=== PATIENT | female | born 1955 | race Two or more races ===

== ENCOUNTER 2016-04-20 08:42 | Outpatient (CLI) | payer BC ==
[~2016-04-20 08:42] MED LIST: ERGO400C; GLUC100017
[2016-04-20 09:21] LABS: BASOPHILS % (AUTO) 0.5 % (0.0-2.0); DIFF TOTAL % 100 %; EOSINOPHILS # (AUTO) 0.1 /CMM (0.0-0.7); EOSINOPHILS % (AUTO) 2.2 % (0.0-6.0); HEMATOCRIT 42 % (33-45); HEMOGLOBIN 13.3 g/dL (11.5-14.8); LYMPHOCYTES # (AUTO) 1.4 /CMM (0.8-4.8); LYMPHOCYTES % (AUTO) 25.1 % (20.0-44.0); MEAN CORPUSCULAR HEMOGLOBIN 25 PG (26.0-33.0); MEAN CORPUSCULAR HGB CONC 32 g/dl (31.0-36.0); MEAN CORPUSCULAR VOLUME 79 fL (82-100); MONOCYTES # (AUTO) 0.3 /CMM (0.1-1.30); MONOCYTES % (AUTO) 5.3 % (2.0-12.0); NEUTROPHILS # (AUTO) 3.7 /CMM (1.8-8.9); NEUTROPHILS % (AUTO) 66.9 % (43.0-81.0); PLATELET COUNT (AUTO) 339 /CMM (150-450); RED BLOOD CELL COUNT(AUTO) 5.27 MIL/uL (4.0-5.2); WHITE BLOOD COUNT (AUTO) 5.5 K/uL (4.3-11.0)
[2016-04-20 09:39] LABS: ALBUMIN 3.7 g/dL (3.4-5.0); BILIRUBIN,TOTAL 0.5 mg/dL (0.2-1.0); CALCIUM, SERUM 9.1 mg/dL (8.5-10.1); CREATININE 0.6 mg/dL (0.6-1.3); POTASSIUM 4.5 mmol/L (3.5-5.1); TOTAL PROTEIN, SERUM 7.6 g/dL (6.4-8.2)
[2016-04-20 09:43] LABS: THYROID STIMULATING HORMONE 1.034 uIU/mL (0.358-3.74)
[2016-04-21 11:37] LABS: *THYROGLOBULIN 1.6 IU/mL (0.0-0.9); THYROID PEROXIDASE (TPO) AB 8 IU/mL (0-34)
== END 2016-04-20 23:59 | disposition home or self-care (01) ==
LOC: LAB 08:42
PROVIDERS: ATTEND Family Medicine
DX: E04.1 Nontoxic single thyroid nodule (principal)
CPT/HCPCS: 36415; 80053-TC; 80061-TC; 84439-TC; 84443-TC; 85025-TC; 86376

== ENCOUNTER 2016-04-22 14:07 | Outpatient (CLI) | payer BC | END 2016-04-22 23:59 | disposition home or self-care (01) | LOC: US 14:07 | PROVIDERS: ATTEND Family Medicine | DX: E04.1 Nontoxic single thyroid nodule (principal) | CPT/HCPCS: 76536-TC ==

== ENCOUNTER 2016-05-28 05:42 | Outpatient (CLI) | payer BC ==
[2016-05-28 06:32] LABS: APPEARANCE,URINE CLEAR (CLEAR); BILIRUBIN,URINE NEGATIVE (NEGATIVE); BLOOD, URINE NEGATIVE Ery/uL (NEGATIVE); COLOR,URINE YELLOW (YELLOW); KETONES,URINE NEGATIVE (NEGATIVE); LEUKOCYTE ESTERASE ,URINE NEGATIVE (NEGATIVE); NITRITE, URINE NEGATIVE (NEGATIVE); PROTEIN,URINE NEGATIVE (NEGATIVE); UGLUCOSE NEGATIVE (NEGATIVE); UROBILINOGEN,URINE 0.2 EU/dL (0.2)
== END 2016-05-28 23:59 | disposition home or self-care (01) ==
LOC: LAB 05:42
PROVIDERS: ATTEND Family Medicine
DX: N28.1 Cyst of kidney, acquired (principal)
CPT/HCPCS: 81000-TC

== ENCOUNTER 2016-06-26 08:56 | Outpatient (CLI) | payer BC ==
[2016-06-26 09:58] LABS: BASOPHILS % (AUTO) 0.5 % (0.0-2.0); EOSINOPHILS # (AUTO) 0.1 /CMM (0.0-0.7); EOSINOPHILS % (AUTO) 2.7 % (0.0-6.0); HEMATOCRIT 42 % (33-45); HEMOGLOBIN 13.6 g/dL (11.5-14.8); LYMPHOCYTES # (AUTO) 1.5 /CMM (0.8-4.8); MEAN CORPUSCULAR HEMOGLOBIN 25 PG (26.0-33.0); MEAN CORPUSCULAR HGB CONC 32 g/dl (31.0-36.0); MEAN CORPUSCULAR VOLUME 78 fL (82-100); MONOCYTES # (AUTO) 0.2 /CMM (0.1-1.30); MONOCYTES % (AUTO) 5.3 % (2.0-12.0); NEUTROPHILS # (AUTO) 2.8 /CMM (1.8-8.9); NEUTROPHILS % (AUTO) 59.5 % (43.0-81.0); PLATELET COUNT (AUTO) 330 /CMM (150-450); RED BLOOD CELL COUNT(AUTO) 5.41 MIL/uL (4.0-5.2); WHITE BLOOD COUNT (AUTO) 4.7 K/uL (4.3-11.0)
[2016-06-26 10:52] LABS: ALBUMIN 3.9 g/dL (3.4-5.0); BILIRUBIN,TOTAL 0.9 mg/dL (0.2-1.0); CALCIUM, SERUM 9.1 mg/dL (8.5-10.1); CREATININE 0.5 mg/dL (0.6-1.3); POTASSIUM 4.1 mmol/L (3.5-5.1); TOTAL PROTEIN, SERUM 7.6 g/dL (6.4-8.2)
[2016-06-26 11:14] LABS: T4 (THYROXINE) 10.3 ug/dL (4.7-13.3); THYROID STIMULATING HORMONE 0.627 uIU/mL (0.358-3.74)
[2016-06-27 08:09] LABS: THYROID PEROXIDASE (TPO) AB 7 IU/mL (0-34)
[2016-06-27 11:10] LABS: VIT D, 25-HYDROXY 39.2 ng/mL (30.0-100.0)
[2016-07-01 11:21] LABS: *THYROGLOBULIN <1.0 IU/mL (0.0-0.9)
== END 2016-06-26 23:59 | disposition home or self-care (01) ==
LOC: LAB 08:56
PROVIDERS: ATTEND Family Medicine
DX: E78.5 Hyperlipidemia, unspecified (principal); E55.9 Vitamin D deficiency, unspecified; R94.6 Abnormal results of thyroid function studies
CPT/HCPCS: 36415; 80053-TC; 80061-TC; 82306; 84436-TC; 84443-TC; 85025-TC; 86376

== ENCOUNTER 2016-07-28 15:40 | Outpatient (CLI) | payer BC ==
[2016-07-30 03:10] LABS: *NEISSERIA GONORRHOEAE NAA Negative (Negative); CHLAMYDIA TRACHOMATIS NAA Negative (Negative)
== END 2016-07-28 23:59 | disposition home or self-care (01) ==
LOC: LAB 15:40
PROVIDERS: ATTEND Family Medicine
DX: Z11.3 Encounter for screening for infections with a predominantly sexual mode of transmission (principal)
CPT/HCPCS: 36415; 86803; 87491; 87591; 88142

== ENCOUNTER 2016-07-29 14:20 | Outpatient (CLI) | payer BC | END 2016-07-29 23:59 | disposition home or self-care (01) | LOC: US 14:20 | PROVIDERS: ATTEND Family Medicine | DX: N28.1 Cyst of kidney, acquired (principal) | CPT/HCPCS: 76770-TC ==

== ENCOUNTER 2016-09-02 10:43 | Outpatient (CLI) | payer BC ==
[2016-09-02 11:45] LABS: CREATININE 0.5 mg/dL (0.6-1.3)
[2016-09-02 11:49] LABS: INR 0.96 (0.87-1.13); PROTHROMBIN TIME 10.3 SECS (9.5-12.7)
== END 2016-09-02 23:59 | disposition home or self-care (01) ==
LOC: US 10:43
DX: Z01.818 Encounter for other preprocedural examination (principal); E04.2 Nontoxic multinodular goiter; N63 Unspecified lump in breast
CPT/HCPCS: 36415; 82565-TC; 84520-TC; 85730-TC

== ENCOUNTER 2016-11-04 13:59 | Outpatient (CLI) | payer BC | END 2016-11-04 23:59 | disposition home or self-care (01) | LOC: US 13:59 | PROVIDERS: ATTEND Family Medicine | DX: N28.1 Cyst of kidney, acquired (principal) | CPT/HCPCS: 76770-TC ==

== ENCOUNTER 2016-12-09 07:47 | Outpatient (CLI) | payer BC ==
[2016-12-09 08:33] LABS: APPEARANCE,URINE CLOUDY (CLEAR); BILIRUBIN,URINE NEGATIVE (NEGATIVE); BLOOD, URINE NEGATIVE Ery/uL (NEGATIVE); COLOR,URINE YELLOW (YELLOW); KETONES,URINE NEGATIVE (NEGATIVE); LEUKOCYTE ESTERASE ,URINE 1+ (NEGATIVE); NITRITE, URINE NEGATIVE (NEGATIVE); PH,URINE 7.5 (5.0-8.0); PROTEIN,URINE NEGATIVE (NEGATIVE); UGLUCOSE NEGATIVE (NEGATIVE); UROBILINOGEN,URINE 0.2 EU/dL (0.2)
[2016-12-09 08:38] LABS: BACTERIA,URINE Few /HPF (None Seen); RBC,URINE 0-2 /HPF (0-2); SQUAMOUS EPITHELIAL CELL,UR 0-2 /HPF (None Seen); URINE AMORPHOUS URATE Moderate /HPF (None Seen)
[2016-12-09 09:04] LABS: ALBUMIN 4.2 g/dL (3.4-5.0); BILIRUBIN,TOTAL 1.1 mg/dL (0.2-1.0); CALCIUM, SERUM 9.2 mg/dL (8.5-10.1); CREATININE 0.6 mg/dL (0.6-1.3); POTASSIUM 4.2 mmol/L (3.5-5.1); TOTAL PROTEIN, SERUM 7.9 g/dL (6.4-8.2)
[2016-12-09 09:12] LABS: T4 (THYROXINE) 11.6 ug/dL (4.7-13.3); THYROID STIMULATING HORMONE 0.949 uIU/mL (0.358-3.74)
[2016-12-09 09:16] LABS: BASOPHILS % (AUTO) 0.7 % (0.0-2.0); EOSINOPHILS # (AUTO) 0.2 /CMM (0.0-0.7); EOSINOPHILS % (AUTO) 2.8 % (0.0-6.0); HEMATOCRIT 46 % (33-45); HEMOGLOBIN 14.6 g/dL (11.5-14.8); LYMPHOCYTES # (AUTO) 1.8 /CMM (0.8-4.8); LYMPHOCYTES % (AUTO) 30.5 % (20.0-44.0); MEAN CORPUSCULAR HEMOGLOBIN 26 PG (26.0-33.0); MEAN CORPUSCULAR HGB CONC 32 g/dl (31.0-36.0); MEAN CORPUSCULAR VOLUME 82 fL (82-100); MONOCYTES # (AUTO) 0.3 /CMM (0.1-1.30); MONOCYTES % (AUTO) 4.9 % (2.0-12.0); NEUTROPHILS # (AUTO) 3.5 /CMM (1.8-8.9); NEUTROPHILS % (AUTO) 61.1 % (43.0-81.0); PLATELET COUNT (AUTO) 287 /CMM (150-450); RDW COEFFICIENT OF VARIATION 14.1 (11.5-15.0); RED BLOOD CELL COUNT(AUTO) 5.65 MIL/uL (4.0-5.2); WHITE BLOOD COUNT (AUTO) 5.8 K/uL (4.3-11.0)
== END 2016-12-09 23:59 | disposition home or self-care (01) ==
LOC: LAB 07:47
PROVIDERS: ATTEND Family Medicine
DX: Z00.01 Encounter for general adult medical examination with abnormal findings (principal); E55.9 Vitamin D deficiency, unspecified; E78.5 Hyperlipidemia, unspecified; R79.89 Other specified abnormal findings of blood chemistry
CPT/HCPCS: 36415; 80053-TC; 80061-TC; 81000-TC; 82306; 84436-TC; 84443-TC; 85025-TC; 87086-TC

== ENCOUNTER 2017-02-18 05:38 | Outpatient (CLI) | payer BC | END 2017-02-18 23:59 | disposition home or self-care (01) | LOC: LAB 05:38 | PROVIDERS: ATTEND Family Medicine | DX: Z11.59 Encounter for screening for other viral diseases (principal); N39.0 Urinary tract infection, site not specified; M19.072 Primary osteoarthritis, left ankle and foot; M19.071 Primary osteoarthritis, right ankle and foot; M25.471 Effusion, right ankle; M76.62 Achilles tendinitis, left leg; M20.5X1 Other deformities of toe(s) (acquired), right foot; M77.31 Calcaneal spur, right foot; M65.88 Other synovitis and tenosynovitis, other site; M85.88 Other specified disorders of bone density and structure, other site | CPT/HCPCS: 36415; 73600-TC; 73620-TC; 86706; 86709-TC; 86803; 87086-TC ==

== ENCOUNTER 2017-05-30 14:20 | Emergency (ER) | payer BC, OTHER ==
[~2017-05-30] VITALS: Ht 160 cm; Wt 76.2 kg
[2017-05-30 14:23] VITALS: BP 139/71
== END 2017-05-30 15:24 | disposition home or self-care (01) ==
LOC: ER 14:24
DX: I87.2 Venous insufficiency (chronic) (peripheral) (principal); J45.909 Unspecified asthma, uncomplicated; Z88.0 Allergy status to penicillin
CPT/HCPCS: 93971-TC; A4606; Z7610

== ENCOUNTER 2017-05-31 16:15 | Outpatient (CLI) | payer BC ==
[2017-05-31 17:50] LABS: BASOPHILS # (AUTO) 0.1 /CMM (0.0-0.2); BASOPHILS % (AUTO) 0.6 % (0.0-2.0); EOSINOPHILS # (AUTO) 0.2 /CMM (0.0-0.7); EOSINOPHILS % (AUTO) 2.3 % (0.0-6.0); HEMATOCRIT 44 % (33-45); HEMOGLOBIN 14.4 g/dL (11.5-14.8); LYMPHOCYTES # (AUTO) 2.6 /CMM (0.8-4.8); LYMPHOCYTES % (AUTO) 28.7 % (20.0-44.0); MEAN CORPUSCULAR HEMOGLOBIN 26 PG (26.0-33.0); MEAN CORPUSCULAR HGB CONC 33 g/dl (31.0-36.0); MEAN CORPUSCULAR VOLUME 80 fL (82-100); MONOCYTES # (AUTO) 0.6 /CMM (0.1-1.30); MONOCYTES % (AUTO) 6.6 % (2.0-12.0); NEUTROPHILS # (AUTO) 5.6 /CMM (1.8-8.9); NEUTROPHILS % (AUTO) 61.8 % (43.0-81.0); PLATELET COUNT (AUTO) 312 /CMM (150-450); RDW COEFFICIENT OF VARIATION 13.4 (11.5-15.0); RED BLOOD CELL COUNT(AUTO) 5.51 MIL/uL (4.0-5.2); WHITE BLOOD COUNT (AUTO) 9.1 K/uL (4.3-11.0)
[2017-05-31 17:53] LABS: APPEARANCE,URINE CLEAR (CLEAR); BILIRUBIN,URINE NEGATIVE (NEGATIVE); BLOOD, URINE NEGATIVE Ery/uL (NEGATIVE); COLOR,URINE YELLOW (YELLOW); KETONES,URINE NEGATIVE (NEGATIVE); LEUKOCYTE ESTERASE ,URINE 2+ (NEGATIVE); NITRITE, URINE NEGATIVE (NEGATIVE); PROTEIN,URINE NEGATIVE (NEGATIVE); UGLUCOSE NEGATIVE (NEGATIVE); UROBILINOGEN,URINE 0.2 EU/dL (0.2)
[2017-05-31 18:09] LABS: ALBUMIN 4.3 g/dL (3.4-5.0); BILIRUBIN,TOTAL 1.1 mg/dL (0.2-1.0); CALCIUM, SERUM 9.7 mg/dL (8.5-10.1); CREATININE 0.5 mg/dL (0.6-1.3); POTASSIUM 4.3 mmol/L (3.5-5.1); TOTAL PROTEIN, SERUM 8.7 g/dL (6.4-8.2)
[2017-05-31 18:17] LABS: BACTERIA,URINE Moderate /HPF (None Seen); RBC,URINE 0-2 /HPF (0-2); SQUAMOUS EPITHELIAL CELL,UR Moderate /HPF (None Seen); THYROID STIMULATING HORMONE 1.396 uIU/mL (0.358-3.74); URIC ACID 4.5 mg/dL (2.6-7.2); WBC,URINE 21-50 /HPF (0-3)
== END 2017-05-31 23:59 | disposition home or self-care (01) ==
LOC: LAB 16:15
PROVIDERS: ATTEND Family Medicine
DX: M85.872 Other specified disorders of bone density and structure, left ankle and foot (principal)
CPT/HCPCS: 36415; 73610-TC; 80053-TC; 80061-TC; 81000-TC; 82306; 84439-TC; 84443-TC; 84550-TC; 85025-TC; 87086-TC; 87186-TC

== ENCOUNTER 2017-06-03 11:49 | Outpatient (CLI) | payer BC | END 2017-06-03 23:59 | disposition home or self-care (01) | LOC: MRI 11:49 | PROVIDERS: ATTEND Family Medicine | DX: M19.072 Primary osteoarthritis, left ankle and foot (principal); M76.62 Achilles tendinitis, left leg | CPT/HCPCS: 73721-TC ==

== ENCOUNTER 2017-06-16 08:10 | Outpatient (CLI) | payer BC | END 2017-06-16 23:59 | disposition home or self-care (01) | LOC: LAB 08:10 | PROVIDERS: ATTEND Family Medicine | DX: E55.9 Vitamin D deficiency, unspecified (principal) | CPT/HCPCS: 36415; 82306 ==

== ENCOUNTER 2017-08-05 08:23 | Outpatient (CLI) | payer BC ==
[2017-08-05 09:41] LABS: EOSINOPHILS % (AUTO) 3.4 % (0.0-6.0); HEMATOCRIT 41 % (33-45); HEMOGLOBIN 13.2 g/dL (11.5-14.8); LYMPHOCYTES # (AUTO) 1.6 /CMM (0.8-4.8); LYMPHOCYTES % (AUTO) 32.4 % (20.0-44.0); MEAN CORPUSCULAR HGB CONC 33 g/dl (31.0-36.0); MEAN CORPUSCULAR VOLUME 80 fL (82-100); MONOCYTES # (AUTO) 0.3 /CMM (0.1-1.30); MONOCYTES % (AUTO) 6.2 % (2.0-12.0); NEUTROPHILS # (AUTO) 2.8 /CMM (1.8-8.9); PLATELET COUNT (AUTO) 297 /CMM (150-450); RDW COEFFICIENT OF VARIATION 14.3 (11.5-15.0); RED BLOOD CELL COUNT(AUTO) 5.09 MIL/uL (4.0-5.2); WHITE BLOOD COUNT (AUTO) 4.9 K/uL (4.3-11.0)
[2017-08-05 09:44] LABS: APPEARANCE,URINE SL CLOUDY (CLEAR); BILIRUBIN,URINE NEGATIVE (NEGATIVE); BLOOD, URINE NEGATIVE Ery/uL (NEGATIVE); COLOR,URINE YELLOW (YELLOW); KETONES,URINE NEGATIVE (NEGATIVE); LEUKOCYTE ESTERASE ,URINE 1+ (NEGATIVE); NITRITE, URINE NEGATIVE (NEGATIVE); PH,URINE 6.5 (5.0-8.0); PROTEIN,URINE NEGATIVE (NEGATIVE); UGLUCOSE NEGATIVE (NEGATIVE); UROBILINOGEN,URINE 0.2 EU/dL (0.2)
[2017-08-05 09:58] LABS: BACTERIA,URINE Few /HPF (None Seen); RBC,URINE NONE SEEN /HPF (0-2); SQUAMOUS EPITHELIAL CELL,UR Few /HPF (None Seen)
[2017-08-05 10:02] LABS: ALBUMIN 3.8 g/dL (3.4-5.0); BILIRUBIN,TOTAL 0.9 mg/dL (0.2-1.0); CALCIUM, SERUM 9.1 mg/dL (8.5-10.1); CREATININE 0.5 mg/dL (0.6-1.3); POTASSIUM 4.5 mmol/L (3.5-5.1); TOTAL PROTEIN, SERUM 7.4 g/dL (6.4-8.2)
[2017-08-05 10:08] LABS: FREE T4 (FREE THYROXINE) 1.09 ng/dL (0.76-1.46); THYROID STIMULATING HORMONE 0.783 uIU/mL (0.358-3.74)
== END 2017-08-05 23:59 | disposition home or self-care (01) ==
LOC: LAB 08:23
PROVIDERS: ATTEND Family Medicine
DX: Z00.01 Encounter for general adult medical examination with abnormal findings (principal)
CPT/HCPCS: 36415; 80053-TC; 80061-TC; 81000-TC; 82306; 84439-TC; 84443-TC; 85025-TC; 87086-TC; 87186-TC

== ENCOUNTER 2017-08-09 07:20 | Outpatient (CLI) | payer BC ==
[2017-08-09 09:17] LABS: BASOPHILS % (AUTO) 0.7 % (0.0-2.0); EOSINOPHILS % (AUTO) 2.6 % (0.0-6.0); HEMATOCRIT 41 % (33-45); HEMOGLOBIN 13.4 g/dL (11.5-14.8); LYMPHOCYTES % (AUTO) 31.3 % (20.0-44.0); MEAN CORPUSCULAR HGB CONC 33 g/dl (31.0-36.0); MEAN CORPUSCULAR VOLUME 80 fL (82-100); MONOCYTES # (AUTO) 0.3 /CMM (0.1-1.30); MONOCYTES % (AUTO) 5.3 % (2.0-12.0); NEUTROPHILS # (AUTO) 3.8 /CMM (1.8-8.9); NEUTROPHILS % (AUTO) 60.1 % (43.0-81.0); PLATELET COUNT (AUTO) 285 /CMM (150-450); RDW COEFFICIENT OF VARIATION 14.4 (11.5-15.0); RED BLOOD CELL COUNT(AUTO) 5.12 MIL/uL (4.0-5.2); WHITE BLOOD COUNT (AUTO) 6.3 K/uL (4.3-11.0)
[2017-08-09 09:42] LABS: ALBUMIN 3.9 g/dL (3.4-5.0); CALCIUM, SERUM 9.1 mg/dL (8.5-10.1); CREATININE 0.6 mg/dL (0.6-1.3); POTASSIUM 4.4 mmol/L (3.5-5.1); TOTAL PROTEIN, SERUM 7.4 g/dL (6.4-8.2)
[2017-08-09 10:13] LABS: INR 0.95 (0.87-1.13)
== END 2017-08-09 23:59 | disposition home or self-care (01) ==
LOC: LAB 07:20
PROVIDERS: ATTEND Family Medicine
DX: Z01.818 Encounter for other preprocedural examination (principal)
CPT/HCPCS: 36415; 80053-TC; 85025-TC; 85730-TC

== ENCOUNTER 2017-08-10 14:03 | Outpatient (CLI) | payer BC | END 2017-08-10 23:59 | disposition home or self-care (01) | LOC: RAD 14:03 | PROVIDERS: ATTEND Family Medicine | DX: Z01.818 Encounter for other preprocedural examination (principal); I70.0 Atherosclerosis of aorta; I51.7 Cardiomegaly | CPT/HCPCS: 71046 ==

== ENCOUNTER 2017-08-20 05:11 | Inpatient (IN) | payer BC ==
[2017-08-10 14:00] LABS: BILIRUBIN,URINE NEGATIVE (NEGATIVE); BLOOD, URINE NEGATIVE Ery/uL (NEGATIVE); COLOR,URINE YELLOW (YELLOW); KETONES,URINE NEGATIVE (NEGATIVE); LEUKOCYTE ESTERASE ,URINE TRACE (NEGATIVE); NITRITE, URINE NEGATIVE (NEGATIVE); PROTEIN,URINE NEGATIVE (NEGATIVE); UGLUCOSE NEGATIVE (NEGATIVE); UROBILINOGEN,URINE 0.2 EU/dL (0.2)
[2017-08-10 14:01] LABS: APPEARANCE,URINE TURBID (CLEAR)
[2017-08-10 14:29] LABS: BACTERIA,URINE Rare /HPF (None Seen); SQUAMOUS EPITHELIAL CELL,UR Rare /HPF (None Seen); URINE AMORPHOUS URATE Many /HPF (None Seen); WBC,URINE 0-2 /HPF (0-3)
[2017-08-10 14:30] LABS: RBC,URINE NONE SEEN /HPF (0-2)
[~2017-08-20] VITALS: Ht 160 cm; Wt 76.2 kg
--- NOTE | 2017-08-20 05:25 | NUR ---
PLZ SEE PRE OP ADMISSION NOTES FOR MORE INFORMATION
[2017-08-20] MEDS ORDERED: ANESTHESIA TRAY IN PYXIS 1 EA TRAY MC ONE (06:25)
[2017-08-20] MEDS ORDERED: BACITRACIN 50000 UNITS/VIAL ONE (06:25)
[2017-08-20] MEDS ORDERED: BUPIVACAINE 0.25% 75 MG/30 ML VIAL ONE (06:25)
[2017-08-20] MEDS ORDERED: LIDOCAINE HCL/PF 1% 30 ML SDV ONE (06:26)
[2017-08-20] MEDS ORDERED: FENTANYL PF 100MCG/2ML AMPUL ONE (06:38)
[2017-08-20] MEDS ORDERED: MIDAZOLAM HCL 2 MG/2ML VIAL ONE (06:38)
[2017-08-20] MEDS ORDERED: CLINDAMYCIN 900 MG/6 ML VIAL ONE (07:00)
--- NOTE | 2017-08-20 08:30 | NUR ---
RN OPENING ADMISSION NOTES PATIENT AWAKE, RESTING COMFORTABLY IN BED, RESPIRATIONS EVEN AND UNLABORED, ABLE TO MAKE NEEDS KNOWN, DENIES ANY PAIN OR DISCOMFORT AT THIS TIME. IV ACCESS TO R WRIST PATENT AND INTACT NO REDNESS OR INFILTRATION NOTED. SAFETY MEASURES IN PLACE, KEPT CLEAN DRY AND COMFORTABLE CALL LIGHT WITHIN EASY REACH ORIENTED TO ROOM AND UNIT, AND USE OF CALL LIGHT, CORNELL KIM BODY FITTER AWARE OF PT'S ARRIVAL, WILL CARRY OUT ADMITTING ORDERS
[2017-08-20] MEDS ORDERED: HYDROCODONE/APAP 5/325MG 1 EACH TABLET PO PRN (09:00)
[2017-08-20] MEDS ORDERED: BIOT10004 PO (09:02)
[2017-08-20] MEDS ORDERED: MAGN250T2 PO (09:02)
[2017-08-20] MEDS ORDERED: ASCO500T9 PO (09:02)
[2017-08-20] MEDS ORDERED: CHOL100044 PO (09:02)
[2017-08-20] MEDS: HYDROCODONE/APAP 5/325MG 1 EACH TABLET PO PRN ×2 (12:28→22:18)
[2017-08-20 16:00] VITALS: BP 120/74
--- NOTE | 2017-08-20 19:23 | NUR ---
RN CLOSING NOTES PATIENT AWAKE, RESTING COMFORTABLY IN BED, RESPIRATIONS EVEN AND UNLABORED, ABLE TO MAKE NEEDS KNOWN, DENIES ANY PAIN OR DISCOMFORT AT THIS TIME. IV ACCESS TO R WRIST PATENT AND INTACT NO REDNESS OR INFILTRATION NOTED. SAFETY MEASURES IN PLACE, KEPT CLEAN DRY AND COMFORTABLE CALL LIGHT WITHIN EASY REACH ORIENTED TO ROOM AND UNIT, AND USE OF CALL LIGHT. WILL CONTINUE TO MONITOR AND ENDORSE TO NEXT SHIFT FOR CONTINUITY OF CARE
--- NOTE | 2017-08-20 19:25 | NUR ---
MS RN NOTES RECEIVED PT SITTING UP IN BED, AWAKE, A/OX4, VERBALLY RESPONSIVE. FAMILY MEMBER AT BEDSIDE . NO SOB NOR DISTRESS NOTED, IV SITE ON RIGHT WRIST INTACT AND PATENT, NO S/S OF INFILTRATION NOTED. OFFERED PAIN MEDICINE BUT PT DENIES PAIN AT THIS TIME. LEFT FOOT WITH CLEAN AND INTACT DRESSING, NO BLEEDING NOTED AT THIS TIME, ELEVATED WITH PILLOW, ICE PACK APPLIED. ALL NEEDS ATTENDED AND MET. SAFETY PRECAUTIONS OBSERVED. CALL LIGHT WITHIN REACH. WILL MONITOR PT CLOSELY.
[2017-08-20 20:00] VITALS: BP 109/72
[2017-08-21] MEDS: HYDROCODONE/APAP 5/325MG 1 EACH TABLET PO PRN ×3 (05:07→15:00)
--- NOTE | 2017-08-21 06:31 | NUR ---
MS RN NOTES PT SITTING UP IN BED, AWAKE, WATCHING TV AT THIS TIME. A/OX4, VERBALLY RESPONSIVE. NO SOB NOR DISTRESS NOTED, IV SITE ON RIGHT WRIST INTACT AND PATENT, NO S/S OF INFILTRATION NOTED. LEFT FOOT WITH CLEAN AND INTACT DRESSING, NO BLEEDING NOTED AT THIS TIME, ELEVATED WITH PILLOW, ICE PACK APPLIED. ALL NEEDS ATTENDED AND MET. SAFETY PRECAUTIONS OBSERVED. CALL LIGHT WITHIN REACH. WILL ENDORSE TO DAY SHIFT ACCORDINGLY.
[2017-08-21 06:48] LABS: BASOPHILS % (AUTO) 0.5 % (0.0-2.0); HEMATOCRIT 41 % (33-45); HEMOGLOBIN 13.3 g/dL (11.5-14.8); LYMPHOCYTES # (AUTO) 2.1 /CMM (0.8-4.8); LYMPHOCYTES % (AUTO) 28.2 % (20.0-44.0); MEAN CORPUSCULAR HGB CONC 32 g/dl (31.0-36.0); MEAN CORPUSCULAR VOLUME 83 fL (82-100); MONOCYTES # (AUTO) 0.5 /CMM (0.1-1.30); MONOCYTES % (AUTO) 6.7 % (2.0-12.0); NEUTROPHILS # (AUTO) 4.8 /CMM (1.8-8.9); NEUTROPHILS % (AUTO) 63.6 % (43.0-81.0); PLATELET COUNT (AUTO) 277 /CMM (150-450); RDW COEFFICIENT OF VARIATION 14.4 (11.5-15.0); RED BLOOD CELL COUNT(AUTO) 4.93 MIL/uL (4.0-5.2); WHITE BLOOD COUNT (AUTO) 7.5 K/uL (4.3-11.0)
[2017-08-21 07:05] LABS: CALCIUM, SERUM 8.8 mg/dL (8.5-10.1); CREATININE 0.6 mg/dL (0.6-1.3); POTASSIUM 4.3 mmol/L (3.5-5.1)
--- NOTE | 2017-08-21 07:25 | NUR ---
MS/RN OPENING NOTE PATIENT IN BED AWAKE. ALERT AND ORIENTED X4. DENIES SOB. RESPIRATION REGULAR AND UNLABORED. DENIES PAIN. LEFT FOOT DRESSING INTACT AND CLEAN. RIGHT WRIST G 20 PATENT AND SALINE LOCKED. BED LOW AND LOCKED. SIDE RAILS UP X3. CALL LIGHT WITHIN REACH. WILL CONTINUE TO MONITOR.
[2017-08-21 08:00] VITALS: BP 115/80
[2017-08-21] MEDS ORDERED: HYDR-3972 PO (10:20)
[2017-08-21 16:00] VITALS: BP 151/80
--- NOTE | 2017-08-21 18:00 | NUR ---
MS/RN CLOSING NOTE PATIENT ALERT AND ORIENTED X4. DENIES SOB. DENIES PAIN. RESPIRATION REGULAR AND UNLABORED. BILATERAL PEDAL PULSES PRESENT. LEFT FOOT DRESSING IN PLACE WITH NO BLEEDING. DISCHARGE INSTRUCTIONS GIVEN TO THE PATIENT AND THE PATIENT VERBALIZED UNDERSTANDING. PRESCRIPTION GIVEN TO THE PATIENT AND THE COPY SAVED IN THE CHART. THE PATIENT IS PICKED UP BY THE SON. PATIENT LEFT THE HOSPITAL IN STABLE CONDITION.
== END 2017-08-21 18:15 | disposition home or self-care (01) | DRG 505 ==
LOC: DS 05:11 → MED 09:38
PROVIDERS: ADMIT Specialist; ATTEND Specialist
PROC: 0QBM0ZZ Excision of Left Tarsal, Open Approach (ICD-10-PCS; principal; 2017-08-20 07:00)
DX: M92.62 Juvenile osteochondrosis of tarsus, left ankle (principal); M19.90 Unspecified osteoarthritis, unspecified site; M89.9 Disorder of bone, unspecified; Z90.710 Acquired absence of both cervix and uterus
CPT/HCPCS: 36415; 80048-TC; 81000-TC; 85025-TC; 87081-TC; 97116-TC; 97530-TC; A6402; J1100; J2250; J2405; J2704; J3010; J3490

== ENCOUNTER 2017-11-02 10:33 | Outpatient (CLI) | payer BC ==
[~2017-11-02 10:33] MED LIST changes: +ASCO500T9 PO; +BIOT10004 PO; +CHOL100044 PO; -ERGO400C; -GLUC100017; +HYDR-3972 PO; +MAGN250T2 PO
[2017-11-02 15:52] LABS: MONOTEST NEGATIVE (NEGATIVE)
== END 2017-11-02 23:59 | disposition home or self-care (01) ==
LOC: RAD 10:33
PROVIDERS: ATTEND Family Medicine
DX: J02.9 Acute pharyngitis, unspecified (principal); R22.42 Localized swelling, mass and lump, left lower limb; J45.909 Unspecified asthma, uncomplicated; Z88.0 Allergy status to penicillin
CPT/HCPCS: 36415; 86308-TC; 93971-TC

== ENCOUNTER 2018-02-17 14:14 | Emergency (ER) | payer BC, OTHER ==
[~2018-02-17] VITALS: Ht 157.5 cm; Wt 76.2 kg
[2018-02-17 14:14] VITALS: BP 141/98
[2018-02-17] MEDS ORDERED: diphenhydrAMINE HCL 50 MG CAPSULE ONE (14:51)
[2018-02-17] MEDS ORDERED: predniSONE 20 MG TABLET ONE (14:51)
[2018-02-17] MEDS ORDERED: FAMOTIDINE (20 MG) 20 MG TABLET ONE (14:51)
[2018-02-17] MEDS ORDERED: FAMOTIDINE (20 MG) 20 MG TABLET PO ONE (15:00)
[2018-02-17] MEDS ORDERED: predniSONE 10 MG TABLET PO ONE (15:00)
[2018-02-17] MEDS ORDERED: diphenhydrAMINE HCL 50 MG CAPSULE PO ONE (15:00)
== END 2018-02-17 16:37 | disposition home or self-care (01) ==
LOC: ER 14:15
DX: T78.40XA Allergy, unspecified, initial encounter (principal); R22.0 Localized swelling, mass and lump, head; Z88.0 Allergy status to penicillin; Z79.899 Other long term (current) drug therapy; X58.XXXA Exposure to other specified factors, initial encounter
CPT/HCPCS: A4606; Q0163; Z7610

== ENCOUNTER 2018-02-25 14:56 | Emergency (ER) | payer BC, OTHER ==
[~2018-02-25] VITALS: Ht 160 cm; Wt 76.2 kg
[2018-02-25 15:10] VITALS: BP 191/89
--- NOTE | 2018-02-25 15:12 | NUR ---
pt bib self c/o Facial Itching/allergy was seen 02/17 for same given meds but still there, pt is aaox4, not in respiratory distress, kept rested and comfortable, awaiting er md for eval.
--- NOTE | 2018-02-25 15:42 | NUR ---
Patient discharged to home in stable condition. Written and verbal after care instructions given. Patient verbalizes understanding of instruction.
== END 2018-02-25 15:55 | disposition home or self-care (01) ==
LOC: ER 14:59
DX: L25.9 Unspecified contact dermatitis, unspecified cause (principal); Z88.0 Allergy status to penicillin
CPT/HCPCS: A4606; Z7610

== ENCOUNTER 2018-03-03 06:03 | Outpatient (CLI) | payer BC | END 2018-03-03 23:59 | disposition home or self-care (01) | LOC: LAB 06:03 | PROVIDERS: ATTEND Family Medicine | DX: T78.40XA Allergy, unspecified, initial encounter (principal) | CPT/HCPCS: 36415 ==

== ENCOUNTER 2019-06-25 15:24 | Emergency (ER) | payer BC, OTHER ==
[~2019-06-25] VITALS: Ht 160 cm; Wt 77.1 kg
[~2019-06-25 15:24] MED LIST changes: +ASCO-352 PO; -ASCO500T9 PO
--- NOTE | 2019-06-25 15:26 | NUR ---
came in from hospital kitchecn c/o left hand pain and lac s/p hand got caught in the conveyor tray 6/10 pain scale, to ER bed 7, hooked to monitor, warm blanket provided. awaiting MD nelson
--- NOTE | 2019-06-25 15:30 | NUR ---
Dr Gutierrez at bedside
[2019-06-25] MEDS ORDERED: TDAP [DIPH/PERTUSSIS/TET] 0.5 ML VIAL IM ONE ×2 (15:42→16:00)
--- NOTE | 2019-06-25 16:44 | NUR ---
Patient discharged to home in stable condition. Written and verbal after care instructions given. Patient verbalizes understanding of instruction.
[2019-06-25 16:45] VITALS: BP 139/79
== END 2019-06-25 16:45 | disposition home or self-care (01) ==
LOC: ER 15:27
DX: S60.022A Contusion of left index finger without damage to nail, initial encounter (principal); Z79.899 Other long term (current) drug therapy; Z88.0 Allergy status to penicillin; W23.0XXA Caught, crushed, jammed, or pinched between moving objects, initial encounter; Y93.89 Activity, other specified; Y92.89 Other specified places as the place of occurrence of the external cause; Y99.8 Other external cause status
CPT/HCPCS: 73130-TC; 90715

== ENCOUNTER 2019-09-27 10:14 | Outpatient (CLI) | payer BC ==
[2019-09-27 11:50] LABS: ALBUMIN 3.8 g/dL (3.4-5.0); CREATININE 0.6 mg/dL (0.6-1.3)
[2019-09-27 11:58] LABS: BASOPHILS # (AUTO) 0.1 /CMM (0.0-0.2); BASOPHILS % (AUTO) 1.8 % (0.0-2.0); HEMATOCRIT 43 % (33-45); HEMOGLOBIN 13.6 g/dL (11.5-14.8); LYMPHOCYTES # (AUTO) 1.3 /CMM (0.8-4.8); LYMPHOCYTES % (AUTO) 25.7 % (20.0-44.0); MEAN CORPUSCULAR HGB CONC 32 g/dl (31.0-36.0); MEAN CORPUSCULAR VOLUME 82 fL (82-100); MONOCYTES # (AUTO) 0.3 /CMM (0.1-1.30); MONOCYTES % (AUTO) 5.5 % (2.0-12.0); NEUTROPHILS # (AUTO) 3.1 /CMM (1.8-8.9); PLATELET COUNT (AUTO) 248 /CMM (150-450); RED BLOOD CELL COUNT(AUTO) 5.15 MIL/uL (4.0-5.2); WHITE BLOOD COUNT (AUTO) 4.9 K/uL (4.3-11.0)
[2019-09-27 12:01] LABS: THYROID STIMULATING HORMONE 0.622 uIU/mL (0.358-3.74)
== END 2019-09-27 23:59 | disposition home or self-care (01) ==
LOC: LAB 10:14
PROVIDERS: ATTEND Family Medicine
DX: E78.5 Hyperlipidemia, unspecified (principal)
CPT/HCPCS: 36415; 80053-TC; 80061-TC; 84439-TC; 84443-TC; 85025-TC

== ENCOUNTER 2020-01-15 19:00 | Emergency (ER) | payer BC, OTHER ==
[~2020-01-15] VITALS: Ht 160 cm; Wt 77.1 kg
--- NOTE | 2020-01-15 19:16 | NUR ---
PT BIBSELF C/O HIGH BP READING AT HOME, ALSO C/O PALPITATIONS. PT STATES SYMPTOMS RESOLVED ONCE SHE ARRIVED TO THE ER. DENIES CP, SOB. PT AAOX4. AMBULATORY WITH STEADY GAIT. RESPIRATIONS EVEN AND UNLABORED. SKIN INTACT. NO ACUTE DISTRESS NOTED AT THIS TIME. WILL CONTINUE TO MONITOR
--- NOTE | 2020-01-15 19:33 | NUR ---
MECHANICAL MANAGER AT BEDSIDE FOR BLOOD DRAW
[2020-01-15 19:37] LABS: BASOPHILS % (AUTO) 0.7 % (0.0-2.0); EOSINOPHILS % (AUTO) 3.8 % (0.0-6.0); HEMATOCRIT 45 % (33-45); HEMOGLOBIN 14.4 g/dL (11.5-14.8); LYMPHOCYTES # (AUTO) 1.5 /CMM (0.8-4.8); LYMPHOCYTES % (AUTO) 25.7 % (20.0-44.0); MEAN CORPUSCULAR HGB CONC 32 g/dl (31.0-36.0); MEAN CORPUSCULAR VOLUME 83 fL (82-100); MONOCYTES # (AUTO) 0.4 /CMM (0.1-1.30); MONOCYTES % (AUTO) 7.6 % (2.0-12.0); NEUTROPHILS # (AUTO) 3.6 /CMM (1.8-8.9); NEUTROPHILS % (AUTO) 62.2 % (43.0-81.0); PLATELET COUNT (AUTO) 257 /CMM (150-450); RED BLOOD CELL COUNT(AUTO) 5.44 MIL/uL (4.0-5.2); WHITE BLOOD COUNT (AUTO) 5.7 K/uL (4.3-11.0)
[2020-01-15 19:45] LABS: CALCIUM, SERUM 9.3 mg/dL (8.5-10.1); CREATININE 0.7 mg/dL (0.6-1.3); POTASSIUM 4.2 mmol/L (3.5-5.1)
--- NOTE | 2020-01-15 21:04 | NUR ---
Patient discharged to home in stable condition. Written and verbal after care instructions given. Patient verbalizes understanding of instruction.Pt ambulatory with a steady gait
[2020-01-15 21:07] VITALS: BP 141/83
== END 2020-01-15 21:09 | disposition home or self-care (01) ==
LOC: ER 19:02
DX: R00.2 Palpitations (principal); I10 Essential (primary) hypertension; Z98.890 Other specified postprocedural states; Z88.0 Allergy status to penicillin; Z79.899 Other long term (current) drug therapy
CPT/HCPCS: 36415; 80048-TC; 85025-TC

== ENCOUNTER 2020-02-08 14:03 | Outpatient (CLI) | payer BC ==
[2020-02-08 16:34] LABS: CALCIUM, SERUM 9.4 mg/dL (8.5-10.1); CREATININE 0.5 mg/dL (0.6-1.3); POTASSIUM 4.7 mmol/L (3.5-5.1)
== END 2020-02-08 23:59 | disposition home or self-care (01) ==
LOC: LAB 14:03
PROVIDERS: ATTEND Internal Medicine
DX: R53.83 Other fatigue (principal)
CPT/HCPCS: 36415; 80048-TC

== ENCOUNTER 2020-04-04 08:05 | Outpatient (CLI) | payer BC ==
[2020-04-04 11:36] LABS: BASOPHILS # (AUTO) 0.1 /CMM (0.0-0.2); BASOPHILS % (AUTO) 0.9 % (0.0-2.0); HEMATOCRIT 47 % (33-45); HEMOGLOBIN 14.7 g/dL (11.5-14.8); LYMPHOCYTES # (AUTO) 1.7 /CMM (0.8-4.8); LYMPHOCYTES % (AUTO) 30.3 % (20.0-44.0); MEAN CORPUSCULAR HGB CONC 32 g/dl (31.0-36.0); MEAN CORPUSCULAR VOLUME 84 fL (82-100); MONOCYTES # (AUTO) 0.3 /CMM (0.1-1.30); MONOCYTES % (AUTO) 6.1 % (2.0-12.0); NEUTROPHILS # (AUTO) 3.4 /CMM (1.8-8.9); NEUTROPHILS % (AUTO) 60.7 % (43.0-81.0); PLATELET COUNT (AUTO) 254 /CMM (150-450); RED BLOOD CELL COUNT(AUTO) 5.58 MIL/uL (4.0-5.2); WHITE BLOOD COUNT (AUTO) 5.6 K/uL (4.3-11.0)
[2020-04-04 11:38] LABS: BILIRUBIN,URINE NEGATIVE (NEGATIVE); COLOR,URINE YELLOW (YELLOW); LEUKOCYTE ESTERASE ,URINE NEGATIVE (NEGATIVE); NITRITE, URINE NEGATIVE (NEGATIVE); PROTEIN,URINE NEGATIVE (NEGATIVE); UGLUCOSE NEGATIVE (NEGATIVE); UROBILINOGEN,URINE 0.2 EU/dL (0.2)
[2020-04-04 11:51] LABS: BILIRUBIN,TOTAL 1.1 mg/dL (0.2-1.0); CALCIUM, SERUM 9.4 mg/dL (8.5-10.1); CREATININE 0.5 mg/dL (0.6-1.3); POTASSIUM 4.5 mmol/L (3.5-5.1); TOTAL PROTEIN, SERUM 7.6 g/dL (6.4-8.2)
[2020-04-04 12:03] LABS: THYROID STIMULATING HORMONE 0.658 uIU/mL (0.358-3.74)
== END 2020-04-04 23:59 | disposition home or self-care (01) ==
LOC: LAB 08:05
PROVIDERS: ATTEND Family Medicine
DX: I10 Essential (primary) hypertension (principal); E78.5 Hyperlipidemia, unspecified; E55.9 Vitamin D deficiency, unspecified; R00.2 Palpitations; Z79.899 Other long term (current) drug therapy
CPT/HCPCS: 36415; 80053-TC; 80061-TC; 82306; 84439-TC; 84443-TC; 85025-TC

== ENCOUNTER 2020-11-07 14:00 | Inpatient (IN) | payer BC ==
[~2020-11-07] VITALS: Ht 160 cm; Wt 78.0 kg
--- NOTE | 2020-11-07 14:05 | NUR ---
SOB SINCE THIS MORNING. PATIENT A/OX4, C/O FEELING SOB AND WEAK X 1 WEEK. WORSE TODAY. PATIENT AMBULATORY WITH STEADY GAIT. PLACED ON THE ELECTRICAL CONTINUITY TESTER WITH HR OF 118-120. EKG ORDERED.
[2020-11-07 14:37] LABS: BASOPHILS # (AUTO) 0.1 K/uL (0.0-0.2); BASOPHILS % (AUTO) 0.8 % (0.0-2.0); EOSINOPHILS % (AUTO) 1.7 % (0.0-6.0); HEMATOCRIT 45 % (33-45); HEMOGLOBIN 14.4 g/dL (11.5-14.8); LYMPHOCYTES # (AUTO) 2.1 K/uL (0.8-4.8); LYMPHOCYTES % (AUTO) 23.3 % (20.0-44.0); MEAN CORPUSCULAR HGB CONC 32 g/dl (31.0-36.0); MEAN CORPUSCULAR VOLUME 84 fL (82-100); MONOCYTES # (AUTO) 0.5 K/uL (0.1-1.30); MONOCYTES % (AUTO) 5.8 % (2.0-12.0); NEUTROPHILS # (AUTO) 6.2 K/uL (1.8-8.9); NEUTROPHILS % (AUTO) 68.4 % (43.0-81.0); PLATELET COUNT (AUTO) 263 K/uL (150-450); RED BLOOD CELL COUNT(AUTO) 5.39 MIL/uL (4.0-5.2); WHITE BLOOD COUNT (AUTO) 9.1 K/uL (4.3-11.0)
[2020-11-07 14:46] LABS: CREATININE 0.6 mg/dL (0.6-1.3); POTASSIUM 4.1 mmol/L (3.5-5.1)
[2020-11-07 14:52] LABS: ALBUMIN 3.8 g/dL (3.4-5.0); BILIRUBIN,DIRECT 0.4 mg/dL (0.0-0.2); BILIRUBIN,TOTAL 0.9 mg/dL (0.2-1.0); TOTAL PROTEIN, SERUM 7.3 g/dL (6.4-8.2)
[2020-11-07] MEDS ORDERED: FUROSEMIDE 40 MG/4 ML VIAL ONE (14:54)
[2020-11-07] MEDS ORDERED: DILTIAZEM HCL 25 MG IV ONE (14:55)
[2020-11-07] MEDS ORDERED: DILTIAZEM HCL 25 MG IV IV ONE (15:00)
[2020-11-07] MEDS ORDERED: FUROSEMIDE 40 MG/4 ML VIAL IV ONE (15:00)
--- NOTE | 2020-11-07 15:20 | NUR ---
COVID SWAB SENT TO LAB.
[2020-11-07 15:21] LABS: THYROID STIMULATING HORMONE 0.888 uIU/mL (0.358-3.74)
--- NOTE | 2020-11-07 15:25 | NUR ---
PATIENT WENT TO RESTROOM, FORGOT TO PROVIDE A URINE SAMPLE.
--- NOTE | 2020-11-07 15:47 | NUR ---
URINE SENT TO LAB.
[2020-11-07] MEDS ORDERED: METO-357 PO (15:53)
--- NOTE | 2020-11-07 16:18 | NUR ---
319-1 [facility] BED
[2020-11-07 16:24] LABS: BILIRUBIN,URINE Negative (NEGATIVE); COLOR,URINE YELLOW (YELLOW); LEUKOCYTE ESTERASE ,URINE Negative (NEGATIVE); NITRITE, URINE Negative (NEGATIVE); PH,URINE 6.5 (5.0-8.0); PROTEIN,URINE Negative (NEGATIVE); UGLUCOSE Negative (NEGATIVE); UROBILINOGEN,URINE 0.2 EU/dL (0.2)
[2020-11-07] MEDS ORDERED: ACETAMINOPHEN 325 MG TABLET PO PRN (16:30)
[2020-11-07] MEDS ORDERED: ONDANSETRON HCL/PF 4 MG/2 ML VIAL IVP PRN (16:30)
[2020-11-07] MEDS ORDERED: MAG HYDROX/AL HYDROX/SIMETH 30 ML UDC PO PRN (16:30)
[2020-11-07] MEDS ORDERED: Z GUARD REMEDY 2 OZ OINT TP PRN (16:30)
[2020-11-07] MEDS ORDERED: MAGNESIUM HYDROXIDE 30 ML UDC PO PRN (16:30)
--- NOTE | 2020-11-07 17:10 | NUR ---
RN NOTE RECEIVED REPORT FROM SANTINO DOBBINS
--- NOTE | 2020-11-07 17:10 | NUR ---
REPORT GIVEN TO ROCKY DE FOR GIANCARLO.
--- NOTE | 2020-11-07 17:30 | NUR ---
RN NOTE PATIENT WAS TRANSFERRED FROM ER 5 TO ROOM 319. VS BP 117/77 WA 95 RR 18 T 97.6 SA02 96%. PT IS AMBULATORY. A/O X4. ON ROOM AIR, TOLERATING WELL. NO SOB NOTED. NO CHEST PAIN REPORTED. IN NO APPARENT DISTRESS. TELE READING SHOWS AFIB 105. DENIES ANY PAIN OR DISCOMFORT AT THIS TIME. SAFETY MEASURES MAINTAINED. BED IN LOWEST POSITION, BRAKES LOCKED. SIDE RAILS UP X2. CALL LIGHT WITHIN REACH. WILL CONTINUE PLAN OF CARE.
--- NOTE | 2020-11-07 17:35 | NUR ---
PATIENT TRANSFERRED TO ROOM 319 VIA ACLS PROTOCOL. NO DISTRESS NOTED. NEEDS ATTENDED. KEPT COMFORTABLE. ENDORSED TO ROCKY DE.
--- NOTE | 2020-11-07 18:10 | NUR ---
SANTINO NOTE TRANSFERRED PT TO ICU 257 VIA BED. STABLE, NO COMPLAINTS. REPORT GIVEN TO SANTINO OSPINA FOR GIANCARLO Addendum: 11/07/20 at 1941 by ROCKY CLINTON RN CORRECTION: PT TRANSFERRED AROUND 1909
[2020-11-07] MEDS ORDERED: DILTIAZEM HCL IV 125 MG in IV NS 0.9% 100 ML IV PRN (18:30)
[2020-11-07] MEDS ORDERED: RIVAROXABAN 10 MG TABLET PO SCH (18:30)
--- NOTE | 2020-11-07 18:35 | NUR ---
RN NOTE DR. FERNANDES ORDERED PT TO BE NPO EXCEPT MEDS POST MIDNIGHT AND TO OBTAIN CONSENT FOR GUZMAN CARDIOVERSION. RECEIVED ORDERS AND CARRIED OUT.
[2020-11-07] MEDS: METOPROLOL SUCCINATE 50 MG TAB.SR.24H PO SCH (18:43)
[2020-11-07] MEDS: APIXABAN 5 MG TABLET PO SCH (18:43)
--- NOTE | 2020-11-07 19:30 | NUR ---
RN NOTE RECEIVED PATIENT IN BED. A/OX4. TOLERATING ROOM AIR. RESPIRATIONS ARE EVEN AND UNLABORED. NO S/S SOB NOTED. NO C/O PAIN AT THIS TIME. IN NO APPARENT DISTRESS. IV ACCESS IN RAC#18 PATENT AND SALINE LOCKED. CALLED PHARMACY TO DELIVER CARDIZEM DRIP. BED IS LOW AND LOCKED, HOB ELEVATED IN HIGH FOWLERS, SIDE RIALS UP X2, CALL LIGHT WITHIN REACH. WILL CONTINUE TO MONITOR THROUGHOUT SHIFT. Addendum: 11/07/20 at 2156 by BHAVESH HERNANDEZ RN TELE MONITOR READS UNCONTROLLED AFIB HR 109. RANGE TO 130S. Addendum: 11/08/20 at 0704 by BHAVESH HERNANDEZ RN CORRECTION PATIENT N 2L/MIN VIA NASAL CANNULA.
[2020-11-07 20:00] VITALS: BP 116/69
[2020-11-07 21:00] VITALS: BP 115/69
[2020-11-07 22:00] VITALS: BP 107/72
--- NOTE | 2020-11-07 22:30 | NUR ---
RN NOTE HELD TADEO CASTROIP D/T PATIENT BP DROPPED TO 88/52 AND HR DROPPED TO 48 THEN BACK UP TO 60S. HR REMAINS IN 60S-70S. CONTROLLED AFIB WITH OCCASIONAL PVCS.
[2020-11-07 23:00] VITALS: BP 93/65
--- NOTE | 2020-11-07 23:56 | NUR ---
RN NOTE INFORMED PATIENT SHE IS NOW NPO. PATIENT VERBALIZES UNDERSTANDING. ALL FOOD AND DRINKS REMOVED FROM BEDSIDE. NPO SIGN PLACED ON DOOR.
[2020-11-08] VITALS (32 sets, daily range): BP systolic 85–129; BP diastolic 35–86
[2020-11-08 04:21] LABS: BASOPHILS # (AUTO) 0.1 K/uL (0.0-0.2); BASOPHILS % (AUTO) 0.8 % (0.0-2.0); EOSINOPHILS % (AUTO) 2.8 % (0.0-6.0); HEMATOCRIT 42 % (33-45); HEMOGLOBIN 13.3 g/dL (11.5-14.8); LYMPHOCYTES # (AUTO) 1.3 K/uL (0.8-4.8); LYMPHOCYTES % (AUTO) 19.9 % (20.0-44.0); MEAN CORPUSCULAR HGB CONC 32 g/dl (31.0-36.0); MEAN CORPUSCULAR VOLUME 84 fL (82-100); MONOCYTES # (AUTO) 0.4 K/uL (0.1-1.30); MONOCYTES % (AUTO) 6.2 % (2.0-12.0); NEUTROPHILS # (AUTO) 4.6 K/uL (1.8-8.9); NEUTROPHILS % (AUTO) 70.3 % (43.0-81.0); PLATELET COUNT (AUTO) 245 K/uL (150-450); RED BLOOD CELL COUNT(AUTO) 4.93 MIL/uL (4.0-5.2); WHITE BLOOD COUNT (AUTO) 6.6 K/uL (4.3-11.0)
[2020-11-08 04:33] LABS: CALCIUM, SERUM 8.8 mg/dL (8.5-10.1); CREATININE 0.7 mg/dL (0.6-1.3); PHOSPHORUS 3.8 mg/dL (2.5-4.9); POTASSIUM 4.3 mmol/L (3.5-5.1)
--- NOTE | 2020-11-08 06:16 | NUR ---
RN NOTE PATIENT RESTING IN BED. A/OX4. ON OXYGEN 2L/MIN VIA NASAL CANNULA. NO RESP DISTRESS. NO PAIN. NO DISTRESS. IV ACCESS IN RAC#18. CARDIZEM HELD. TELE MONITOR READS CONTROLLED AFIB HR 70S. BED REMAINS LOW AND LOCKED, HOB ELEVATED IN HIGH FOWLERS, SIDE RIALS UP X2, CALL LIGHT WITHIN REACH. WILL ENDORSE TO ONCOMING SHIFT.
--- NOTE | 2020-11-08 07:20 | NUR ---
ICU/RN PT IS SITTING ON THE BED.ON ROOM AIR,SAT O2-100%.V/S STABLE ,AFEBRILE.A-FIB ON MONITOR HR-105-115 BPM.CARDIZEM DRIP OFF.RIGHT UPPER ARM IV-HL. PT USE BEDSIDE COMMODE.AMBULATING IN THE ROOM.WAITING FOR GUZMAN AND CARDIOVERSION.
[2020-11-08] MEDS ORDERED: MIDAZOLAM HCL 2 MG/2ML VIAL ONE (07:34)
--- NOTE | 2020-11-08 08:30 | NUR ---
ICU/RN GUZMAN AND CARDIOVERSION DONE .PT HR-65 BPM SINUS RHYTHM.PT TOLERATED PROCEDURE WELL .CONTINUE MONITORING.
[2020-11-08] MEDS: APIXABAN 5 MG TABLET PO SCH ×2 (08:59→17:13)
[2020-11-08] MEDS: METOPROLOL SUCCINATE 50 MG TAB.SR.24H PO SCH (09:00)
[2020-11-08] MEDS: FUROSEMIDE 20 MG TABLET PO SCH (10:42)
--- NOTE | 2020-11-08 17:50 | NUR ---
ICU/RN DUE MEDS ARE GIVEN ORDERED.PM CARE PROVIDED.V/S STABLE,AFEBRILE. NO PAIN REPORTED AT THIS TIME.CONTINUE MONITORING.
--- NOTE | 2020-11-08 19:30 | NUR ---
RN NOTE RECEIVED PATIENT IN BED. A/OX4. TOLERATING ROOM AIR. RESPIRATIONS ARE EVEN AND UNLABORED. NO S/S SOB NOTED. NO C/O PAIN. IN NO APPARENT DISTRESS. TELE MONITOR READS INUS RHYTHM/ SINUS DEONTE. IV ACCESS IN RAC#18 PATENT AND SALINE LOCKED. BED IS LOW AND LOCKED, HOB ELEVATED IN SEMI FOWLERS, SIDE RAILS UP X2, JENNIFER LIGHT WIHTIN REACH. WILL CONTINUE TO MONITOR THROUGHOUT SHIFT.
[2020-11-09] VITALS (47 sets, daily range): BP systolic 68–153; BP diastolic 32–100
[2020-11-09 04:39] LABS: BASOPHILS % (AUTO) 0.8 % (0.0-2.0); EOSINOPHILS % (AUTO) 3.7 % (0.0-6.0); HEMATOCRIT 39 % (33-45); HEMOGLOBIN 12.4 g/dL (11.5-14.8); LYMPHOCYTES # (AUTO) 1.4 K/uL (0.8-4.8); LYMPHOCYTES % (AUTO) 24.7 % (20.0-44.0); MEAN CORPUSCULAR HGB CONC 32 g/dl (31.0-36.0); MEAN CORPUSCULAR VOLUME 84 fL (82-100); MONOCYTES # (AUTO) 0.4 K/uL (0.1-1.30); MONOCYTES % (AUTO) 6.8 % (2.0-12.0); NEUTROPHILS # (AUTO) 3.7 K/uL (1.8-8.9); PLATELET COUNT (AUTO) 213 K/uL (150-450); RED BLOOD CELL COUNT(AUTO) 4.61 MIL/uL (4.0-5.2); WHITE BLOOD COUNT (AUTO) 5.7 K/uL (4.3-11.0)
[2020-11-09 04:58] LABS: CALCIUM, SERUM 8.3 mg/dL (8.5-10.1); CREATININE 0.6 mg/dL (0.6-1.3); PHOSPHORUS 3.5 mg/dL (2.5-4.9); POTASSIUM 4.1 mmol/L (3.5-5.1)
--- NOTE | 2020-11-09 07:18 | NUR ---
RN NOTE PATIENT RESTING IN BED. A/OX4. TOLERATING ROOM AIR. NO RESP DISTRESS. NO PAIN.NO DISTRESS. TELE MONITOR CONTINUES TO READ SINUS RHYTHM/ SINUS DEONTE. IV ACCESS MAINTAINED IN RAC. BED REMAINS LOW AND LOCKED, HOB ELEVATED IN SEMI FOWLERS, SIDE RAILS UP X2, CALL LIGHT WIHTIN REACH. WILL ENDORSE TO ONCOMING SHIFT.
--- NOTE | 2020-11-09 07:30 | NUR ---
ICU/RN PT IS AWAKE,ALERT.AMBULATING IN THE ROOM .ON ROOM AIR .SAT O2-97%.V/S STABLE ,AFEBRILE. HR SINUS RHYTHM 60-65 BPM NO PAIN REPORTED AT THIS TIME.IV-HL.SKIN INTACT.
--- NOTE | 2020-11-09 09:00 | NUR ---
ICU/RN DUE MEDS ARE GIVEN ORDERED.PT IS WAITING FOR DISCHARGE.
[2020-11-09] MEDS: FUROSEMIDE 20 MG TABLET PO SCH (09:35)
[2020-11-09] MEDS: APIXABAN 5 MG TABLET PO SCH ×2 (09:37→16:33)
[2020-11-09] MEDS: METOPROLOL SUCCINATE 50 MG TAB.SR.24H PO SCH (09:37)
[2020-11-09] MEDS ORDERED: FURO20TA4 PO (09:41)
[2020-11-09] MEDS ORDERED: APIX5TAB PO (09:41)
--- NOTE | 2020-11-09 11:25 | NUR ---
ICU/RN PT HR CONVERTED TO ATRIAL FIBRILLATION 110-120 BPM. PT HAS SOB AND WEAKNESS .HOLD DISCHARGE.MD NOTIFIED.AMIODARONE DRIP ORDERED.PT PLACED ON 2L N/C SAT O2-98%.CONTINUE MONITORING.
[2020-11-09] MEDS ORDERED: AMIODARONE 150 MG in IV D5W 100 ML IV ONE (13:00)
[2020-11-09] MEDS: AMIODARONE 450 MG in IV D5W 241 ML IV PRN (13:15)
--- NOTE | 2020-11-09 13:30 | NUR ---
ICU/RN AMIODARONE DRIP STARTED ORDERED.CONTINUE MONITORING.
[2020-11-09 16:50] LABS: MAGNESIUM 2.3 mg/dL (1.8-2.4)
--- NOTE | 2020-11-09 20:32 | NUR ---
RN opening notes Received patient awake in bed watching TV. Alert and oriented. Verbally able to communicate needs. No complaint of pain or discomfort. No distress noted. On 2lpm O2 via nasal cannula tolerating well. Vital signs wnl. On amiodarone drip at 1mg/hr, no adverse effect noted. Kept clean and dry. Will continue to monitor.
[2020-11-10] VITALS (50 sets, daily range): BP systolic 92–143; BP diastolic 23–86
[2020-11-10] MEDS ORDERED: AMIODARONE 150 MG/3 ML VIAL IV ONE (02:48)
[2020-11-10] MEDS: AMIODARONE 450 MG in IV D5W 241 ML IV PRN ×2 (02:56→13:47)
--- NOTE | 2020-11-10 05:42 | NUR ---
RN closing notes Patient on Amiodarone drip at 0.5ml, no adverse effect noted. No compliant of pain or discomfort. Vital signs wnl. No significant change of condition. Patient appreciated bed bath given. Kept clean and dry. Will endorse to next shift for continuity of care.
--- NOTE | 2020-11-10 07:30 | NUR ---
MUSIC ORCHESTRATOR OPENING NOTE PT A/Ox3/3 SEATED IN CHAIR, BREATHING NC 2L, SPO2 99%, NO SIGNS OF RESP DISTRESS OR SOB, BREATHING EVEN A ND UNLABORED. PT BEDSIDE MONITOR A-FIB CONTROLLED, HR 80s. PT DENIES PAIN AT THIS TIME. PT SKIN INTACT. PT RAC #18 INFUSING AMIO @ 0.5 MG/MIN, FLUSHED AND INTACT, NO S/S OF INFILTRATION/INFECTION. PT ABLE TO AMBULATE TO BEDSIDE COMMODE. ALL PT SAFETY PRECAUTIONS IN PLACE, WILL CONT TO MONITOR
[2020-11-10] MEDS: FUROSEMIDE 20 MG TABLET PO SCH (08:31)
[2020-11-10] MEDS: METOPROLOL SUCCINATE 50 MG TAB.SR.24H PO SCH (08:32)
[2020-11-10] MEDS ORDERED: AMIODARONE 150 MG in IV D5W 100 ML IV ONE (09:00)
[2020-11-10] MEDS ORDERED: AMIODARONE 450 MG in IV D5W 241 ML IV SCH (09:00)
[2020-11-10] MEDS: APIXABAN 5 MG TABLET PO SCH ×2 (11:52→17:12)
[2020-11-10] MEDS: AMIODARONE HCL 200 MG TABLET PO SCH ×2 (13:05→20:52)
[2020-11-10] MEDS ORDERED: RIVAROXABAN 10 MG TABLET PO SCH (17:00)
--- NOTE | 2020-11-10 19:10 | NUR ---
ELECTRONICS INSTRUCTOR NOTE RECEIVED PATIENT IN BED RESTING ALERT ORIENTED VERBALLY RESPONSIVE ON ROOM AIR O2:96% A-FIB HR 84s ON AMIODARONE DRIP 0.5MG/MIN IV SITE IS ON RIGHT FOREARM INTACT PATENT,AMBULATORY CONTIENT TO BOWEL/BLADDER,NPO AFTER MIDNIGHT FOR PROCEDURE TOMORROW,SAFETY MEASURE IMPLEMENT,CALL LIGHT WIHTIN REACH CONTINUE TO MONITOR
--- NOTE | 2020-11-10 19:16 | NUR ---
KINDERGARTNER CLOSING NOTE NO CHANGES TO PT DURING SHIFT. PT A-FIB IN 80s. PT ON AMIO DRIP @ 0.5 MG/MIN. PT NPO AFTER MIDNIGHT FOR CARDIOVERSION TOMORROW IN MORNING. ALL PT SAFETY PRECAUTIONS IN PLACE, GIANCARLO ENDORSED TO INSECTICIDE MAKER NURSE
[2020-11-11] VITALS (77 sets, daily range): BP systolic 65–142; BP diastolic 23–89
[2020-11-11] MEDS: AMIODARONE 450 MG in IV D5W 241 ML IV PRN (00:28)
[2020-11-11] MEDS ORDERED: FENTANYL PF 100MCG/2ML AMPUL ONE (06:38)
[2020-11-11] MEDS ORDERED: ANESTHESIA TRAY IN PYXIS 1 EA TRAY MC ONE ×2 (06:42→08:23)
--- NOTE | 2020-11-11 06:51 | NUR ---
DRAPERY INSTALLER NOTE PATIENT REMAINS ON ALERT ORIENTED X4 VERBALLY RESPONSIVE NO SOB NOT ACUTE DISTRESS NOTED,ON ROOM AIR 96-97% HR IS 80-90 A-FIB CONTROLED,ON AMIODARONE DRIP 0.5MG/MIN IV SITE IS ON RIGHT FOREARM INTACT PATENT AMBUALTORY,CONTINET BOWEL/BLADDER,KEPT CALL LIGHT WITHIN REACH,KEPT CLEAN AND DRY ALL THE TIME,NPO AFTER MIDNIGHT FOR GUZMAN CARDIOVERSION THIS MORNING.ENDORSE NEXT COMING SHIFT FOR CONTINUATION OF CARE.
--- NOTE | 2020-11-11 07:10 | NUR ---
RN NOTE RECEIVED PT ON BED, A/Ox4, ON RA, NO SOB NOTED, ON TELE A.FIB , HR IN 90'S , NO DISTRESS NOTED, PT DENIES PAIN AT THIS TIME. PT SKIN INTACT. PT RAC #18 INFUSING AMIO @ 0.5 MG/MIN, FLUSHED AND INTACT, NO S/S OF INFILTRATION/INFECTION. PT ABLE TO AMBULATE TO BEDSIDE COMMODE. ALL PT SAFETY PRECAUTIONS IN PLACE, WILL CONT TO MONITOR
[2020-11-11] MEDS ORDERED: METOPROLOL TARTRATE 50 MG TABLET PO SCH ×2 (09:00→19:30)
[2020-11-11] MEDS: RIVAROXABAN 10 MG TABLET PO SCH (09:09)
[2020-11-11] MEDS: FUROSEMIDE 20 MG TABLET PO SCH (09:09)
--- NOTE | 2020-11-11 10:53 | NUR ---
RN NOTES LOW BP NOTED, PT IS A/Ox4, STATED FEELS WEAK , DR CHA AND DR DENA JOSEPHFED, NEW ORDER RECEIVED FOR NS 500 IV BOLUS . CONTINUE TO MONITOR
[2020-11-11] MEDS ORDERED: IV NS 0.9% 500 ML IV ONE ×2 (11:00→13:00)
[2020-11-11] MEDS: DILTIAZEM HCL 30 MG TABLET PO SCH ×2 (12:00→17:34)
--- NOTE | 2020-11-11 12:30 | NUR ---
RN NOTES PT BP STILL LOW DR CHA NOTIFED, ORDER RECEIVED FOR 500 NS BOLUS IV . CONTINUE TO MONITOR BP .
[2020-11-11] MEDS: METOPROLOL TARTRATE 50 MG TABLET PO SCH ×2 (12:33→17:00)
--- NOTE | 2020-11-11 17:00 | NUR ---
RN NOTES PT OUT OF THE BED TO BEDSIDE COMMODE, BP STABLE, PT STATED FEELS BETTER , ON TELE A.FIB , HR IN 70'S , CONTINUE TO MONITOR.
--- NOTE | 2020-11-11 18:27 | NUR ---
RN NOTES VSS STABLE, NO DISTRESS NOTED AT THIS TIME, ON TELE , A.FIB HR IN 80' , WILL ENDORSE TO CORE SHAPER NURSE FOR CONTINUITY OF CARE .
--- NOTE | 2020-11-11 19:30 | NUR ---
RN NOTE PATIENT IN BED AWAKE, ALERT AND ORIENTEDX4. ABLE TO MAKE NEEDS KNOWN. ON ROOM AIR, O2 SAT 95%. NO SIGNS OF ACUTE RESPIRATORY DISTRESS. A-FIB CONTROLLED HR 80'S. IV ACCESS ON RFA # 20 PATENT AND INTACT. SPOKE WITH DR. FERNANDES, NOTIFIED HR 88, BP 114/73 WITH NEW ORDERS RECEIVED TO DISCONTINUE DILTIAZEM 30 MG ORDER AND TO GIVE METOPROLOL 50 MG ONCE NOW NOTED AND CARRIED OUT. BED LOCKED AND IN LOWEST POSITION. CALL LIGHT WITHIN REACH. ALL NEEDS ANTICIPATED.
[2020-11-12] VITALS (15 sets, daily range): BP systolic 88–123; BP diastolic 47–82
[2020-11-12 04:20] LABS: BASOPHILS % (AUTO) 0.5 % (0.0-2.0); HEMATOCRIT 39 % (33-45); HEMOGLOBIN 12.7 g/dL (11.5-14.8); LYMPHOCYTES # (AUTO) 1.4 K/uL (0.8-4.8); LYMPHOCYTES % (AUTO) 17.2 % (20.0-44.0); MEAN CORPUSCULAR HGB CONC 32 g/dl (31.0-36.0); MEAN CORPUSCULAR VOLUME 84 fL (82-100); MONOCYTES # (AUTO) 0.7 K/uL (0.1-1.30); MONOCYTES % (AUTO) 9.4 % (2.0-12.0); NEUTROPHILS # (AUTO) 5.7 K/uL (1.8-8.9); NEUTROPHILS % (AUTO) 70.9 % (43.0-81.0); PLATELET COUNT (AUTO) 214 K/uL (150-450); RED BLOOD CELL COUNT(AUTO) 4.68 MIL/uL (4.0-5.2)
[2020-11-12 04:35] LABS: CALCIUM, SERUM 8.7 mg/dL (8.5-10.1); CREATININE 0.7 mg/dL (0.6-1.3); PHOSPHORUS 3.3 mg/dL (2.5-4.9); POTASSIUM 4.9 mmol/L (3.5-5.1)
--- NOTE | 2020-11-12 06:27 | NUR ---
RN NOTE PATIENT ALERT AND ORIENTEDX4. ON ROOM AIR, O2 SAT 95%. NO SIGNS OF ACUTE RESPIRATORY DISTRESS. A-FIB CONTROLLED HR 70'S. IV ACCESS ON RFA # 20 PATENT AND INTACT. ALL NEEDS ATTENDED PROMPTLY. BED LOCKED AND IN LOWEST POSITION. CALL LIGHT WITHIN REACH. WILL ENDORSE TO AM SHIFT.
--- NOTE | 2020-11-12 07:24 | NUR ---
RN NOTE PT FOUND IN SEMI FOWLERS POSITION DISPLAYING NO S/S FO DISTRESS, PT ENDORSES NO PAIN AND IS BREATHING EVEN AND UNLABORED ON RA. PT FINISHED EATING BREAKFAST, 100%. PT DOES NOT CURRENTLY ENDORSE TIGHTNESS OF CHEST, DIFFICULTY BREATHING, ANXIETY, EPIGASTRIC PAIN OR HEART PALPITATIONS. VSS, WILL CONTINUE TO MONITOR. SAFETY MEASURES IN PLACE, BED LOCKED AND IN LOWEST POSITION, SIDE RAILS UPX2, CALL LIGHT WITHIN REACH.
[2020-11-12] MEDS: FUROSEMIDE 20 MG TABLET PO SCH (08:54)
[2020-11-12] MEDS: METOPROLOL TARTRATE 50 MG TABLET PO SCH ×2 (08:55→13:35)
[2020-11-12] MEDS ORDERED: DIGOXIN INJ 0.5 MG/2 ML AMPUL IV ONE (09:30)
--- NOTE | 2020-11-12 10:00 | NUR ---
RN NOTES PT C/O DULL PAIN 8/10, ON ANTERIOR AND POSTERIOR OF RIGHT KNEE , DR. SHAH NOTIFIED . NEW ORDER RECEIVED , CONTINUE TO MONITOR.
--- NOTE | 2020-11-12 10:34 | NUR ---
RN NOTES PT WALKED AROUND ICU PER DR FERNANDES ORDER ,DURING WALKING , HER HEART RATE BETWEEN 88-106, O2 SAT ON RA 93-98%, BP 102/82. DR FERNANDES NOTIFIED .
[2020-11-12] MEDS ORDERED: DIGO125T PO (12:49)
[2020-11-12] MEDS ORDERED: RIVA10TA PO (12:49)
[2020-11-12] MEDS ORDERED: METO25TA4 PO (12:49)
--- NOTE | 2020-11-12 13:00 | NUR ---
RN NOTES DISCHARGE INSTRUCTION GIVEN TO PT , VERBALIZES UNDERSTANDING , IV SITE D/CORNELL PER PT REQUEST , AWAITING FOR FAMILY TO PICK HER UP .
[2020-11-12] MEDS: RIVAROXABAN 10 MG TABLET PO SCH (15:10)
--- NOTE | 2020-11-12 15:20 | NUR ---
RN NOTES PT LEFT THE FLOOR TO MAIN ENTRANCE TO GO HOME , PICKED UP BY FAMILY FRIEND, IN STABLE CONDITION, WITH ALL HER BELONGINGS.
== END 2020-11-12 15:26 | disposition home or self-care (01) | DRG 308 ==
LOC: ER 14:06 → TELE 16:27 → ICU 18:59
PROVIDERS: ADMIT Internal Medicine; ATTEND Family Medicine
PROC: 5A2204Z Restoration of Cardiac Rhythm, Single (ICD-10-PCS; principal; 2020-11-08)
PROC: B24BZZ4 Ultrasonography of Heart with Aorta, Transesophageal (ICD-10-PCS; 2020-11-08)
PROC: B24BZZ4 Ultrasonography of Heart with Aorta, Transesophageal (ICD-10-PCS; 2020-11-11)
DX: I48.91 Unspecified atrial fibrillation (principal); J96.01 Acute respiratory failure with hypoxia; I50.33 Acute on chronic diastolic (congestive) heart failure; J81.1 Chronic pulmonary edema; I11.0 Hypertensive heart disease with heart failure; Z20.822 Contact with and (suspected) exposure to COVID-19; J45.909 Unspecified asthma, uncomplicated; Z88.0 Allergy status to penicillin; I34.0 Nonrheumatic mitral (valve) insufficiency; Z79.899 Other long term (current) drug therapy
CPT/HCPCS: 36415; 71045-TC; 80048-TC; 80076-TC; 83735-TC; 83880; 84100-TC; 84439-TC; 84443-TC; 84484-TC; 85025-TC; 87081-TC; 87086-TC; 93307-TC; 93312-TC; 93971-TC; C9803; G0378; J0282; J1160; J1940; J2250; J2405; J2704; J3010; J3490; J7030; J7040; J7060

== ENCOUNTER 2020-11-18 09:57 | Outpatient (CLI) | payer BC ==
[~2020-11-18 09:57] MED LIST changes: -ASCO-352 PO; -BIOT10004 PO; -CHOL100044 PO; +DIGO125T PO; +FURO20TA4 PO; -HYDR-3972 PO; -MAGN250T2 PO; +METO25TA4 PO; +RIVA10TA PO
[2020-11-18 10:58] LABS: BASOPHILS # (AUTO) 0.1 K/uL (0.0-0.2); BASOPHILS % (AUTO) 1.1 % (0.0-2.0); EOSINOPHILS % (AUTO) 1.2 % (0.0-6.0); HEMATOCRIT 43 % (33-45); HEMOGLOBIN 13.7 g/dL (11.5-14.8); LYMPHOCYTES # (AUTO) 1.5 K/uL (0.8-4.8); MEAN CORPUSCULAR HGB CONC 32 g/dl (31.0-36.0); MEAN CORPUSCULAR VOLUME 84 fL (82-100); MONOCYTES # (AUTO) 0.7 K/uL (0.1-1.30); MONOCYTES % (AUTO) 9.7 % (2.0-12.0); NEUTROPHILS # (AUTO) 5.1 K/uL (1.8-8.9); PLATELET COUNT (AUTO) 398 K/uL (150-450); RED BLOOD CELL COUNT(AUTO) 5.13 MIL/uL (4.0-5.2); WHITE BLOOD COUNT (AUTO) 7.5 K/uL (4.3-11.0)
[2020-11-18 11:08] LABS: BILIRUBIN,URINE NEGATIVE (NEGATIVE); COLOR,URINE DARK YELLOW (YELLOW); LEUKOCYTE ESTERASE ,URINE NEGATIVE (NEGATIVE); NITRITE, URINE NEGATIVE (NEGATIVE); PROTEIN,URINE 30 mg/dl (NEGATIVE); UGLUCOSE NEGATIVE (NEGATIVE); UROBILINOGEN,URINE 0.2 EU/dL (0.2)
[2020-11-18 11:14] LABS: BACTERIA,URINE Few /HPF (None Seen); RBC,URINE 0-2 /HPF (0-2); SQUAMOUS EPITHELIAL CELL,UR Few /HPF (None Seen)
[2020-11-18 11:15] LABS: HYALINE CASTS, URINE Few /LPF (None Seen)
[2020-11-18 11:20] LABS: ALBUMIN 3.2 g/dL (3.4-5.0); BILIRUBIN,TOTAL 0.9 mg/dL (0.2-1.0); CALCIUM, SERUM 9.5 mg/dL (8.5-10.1); CREATININE 0.8 mg/dL (0.6-1.3); POTASSIUM 4.4 mmol/L (3.5-5.1); TOTAL PROTEIN, SERUM 7.8 g/dL (6.4-8.2)
[2020-11-18 11:30] LABS: THYROID STIMULATING HORMONE 1.069 uIU/mL (0.358-3.74)
== END 2020-11-18 23:59 | disposition home or self-care (01) ==
LOC: LAB 09:57
PROVIDERS: ATTEND Family Medicine
DX: I10 Essential (primary) hypertension (principal); E55.9 Vitamin D deficiency, unspecified; E78.5 Hyperlipidemia, unspecified; Z79.899 Other long term (current) drug therapy
CPT/HCPCS: 36415; 80053-TC; 80061-TC; 81001; 82306; 84439-TC; 84443-TC; 85025-TC

== ENCOUNTER 2020-12-24 12:48 | Inpatient (IN) | payer BC ==
[~2020-12-24] VITALS: Ht 165.1 cm; Wt 76.2 kg
[2020-12-24] MEDS ORDERED: DIGO125T PO (13:09)
[2020-12-24] MEDS ORDERED: METO50TA16 PO (13:09)
[2020-12-24] MEDS ORDERED: LOSA25TA27 PO (13:09)
[2020-12-24] MEDS ORDERED: RIVA10TA PO (13:09)
[2020-12-24] MEDS ORDERED: FURO-145 PO (13:09)
[2020-12-24] MEDS ORDERED: FLUT16SP (13:09)
--- NOTE | 2020-12-24 13:12 | NUR ---
Patient came in to the er sent by color artist due to arrythmia. On room air, ambulatory with steady gait, denies chest pain. Kept comfortable, IV started on the LAC g18 and blood drawned and sent to lab. Will continue to monitor accordingly.
--- NOTE | 2020-12-24 13:17 | NUR ---
EKG BEING CONDUCTED AT [facility]
[2020-12-24 14:25] LABS: BASOPHILS # (AUTO) 0.1 K/uL (0.0-0.2); EOSINOPHILS % (AUTO) 1.9 % (0.0-6.0); HEMATOCRIT 47 % (33-45); HEMOGLOBIN 14.6 g/dL (11.5-14.8); LYMPHOCYTES # (AUTO) 1.7 K/uL (0.8-4.8); MEAN CORPUSCULAR HGB CONC 31 g/dl (31.0-36.0); MEAN CORPUSCULAR VOLUME 84 fL (82-100); MONOCYTES # (AUTO) 0.3 K/uL (0.1-1.30); MONOCYTES % (AUTO) 6.2 % (2.0-12.0); NEUTROPHILS # (AUTO) 3.4 K/uL (1.8-8.9); NEUTROPHILS % (AUTO) 60.9 % (43.0-81.0); PLATELET COUNT (AUTO) 276 K/uL (150-450); RED BLOOD CELL COUNT(AUTO) 5.56 MIL/uL (4.0-5.2); WHITE BLOOD COUNT (AUTO) 5.6 K/uL (4.3-11.0)
[2020-12-24 14:33] LABS: CALCIUM, SERUM 9.2 mg/dL (8.5-10.1); CARBON DIOXIDE 30 mmol/L (21-32); CHLORIDE 102 mmol/L (98-107); CREATININE 0.8 mg/dL (0.6-1.3); GLUCOSE 99 mg/dL (74-106); POTASSIUM 4.1 mmol/L (3.5-5.1); SODIUM SERUM 142 mmol/L (136-145); UREA NITROGEN, BLOOD 14 mg/dL (7-18)
--- NOTE | 2020-12-24 15:43 | NUR ---
MOVE SHEET SUBMITTED.
--- NOTE | 2020-12-24 17:02 | NUR ---
REPORT GIVEN TO WARREN DE FOR GIANCARLO
[2020-12-24 17:30] VITALS: BP 131/84
[2020-12-24] MEDS ORDERED: Z GUARD REMEDY 2 OZ OINT TP PRN (17:30)
[2020-12-24] MEDS ORDERED: MAG HYDROX/AL HYDROX/SIMETH 30 ML UDC PO PRN (17:30)
[2020-12-24] MEDS ORDERED: ACETAMINOPHEN 325 MG TABLET PO PRN (17:30)
[2020-12-24] MEDS ORDERED: TEMAZEPAM 15 MG CAPSULE PO PRN (17:30)
[2020-12-24] MEDS ORDERED: MAGNESIUM HYDROXIDE 30 ML UDC PO PRN (17:30)
[2020-12-24] MEDS ORDERED: MORPHINE SULFATE INJ 2 MG/ML DISP.SYRIN IV PRN (17:30)
[2020-12-24] MEDS ORDERED: ONDANSETRON HCL/PF 4 MG/2 ML VIAL IVP PRN (17:30)
--- NOTE | 2020-12-24 17:30 | NUR ---
DIRECTOR PROSPECTCORRECTIONAL OFFICER CHIEF NOTE PT TRANSPORTED VIA GURNEY TO UNIT AT THIS TIME. PT ADMITTED TO TELE FROM ER UNDER MANAGER MEETING YARIEL FOR ADMITTING DX OF CARDIAC ARRHYTHMIA. A/O X4. PT IS STABLE ON ROOM AIR WITH NO SOB OR S/S OF RESPIRATORY DISTRESS NOTED. PT ON EXTERNAL DIRECTOR OF CARDIAC CATH LAB READING AFIB AT 63BPM. PT HAS NO C/O PAIN OR DISCOMFORT AT THIS TIME. IV ACCESS IN LAC #18, INTACT AND PATENT. SKIN IS INTACT. ORIENTED PT TO STAFF, UNIT, AND ROOM. SAFETY PRECAUTIONS MAINTAINED. BED IN LOWEST LOCKED POSITION, HOB ELEVATED, SIDE RAILS UP X2. CALL LIGHT AND TABLE WITHIN REACH. WILL CONTINUE TO MONITOR.
[2020-12-24] MEDS: PANTOPRAZOLE 40 MG VIAL IV SCH (17:58)
[2020-12-24] MEDS: RIVAROXABAN 10 MG TABLET PO SCH (18:00)
--- NOTE | 2020-12-24 18:42 | NUR ---
POWER PLANT OPERATIONS MANAGER CLOSING NOTE PT IS AWAKE IN BED. A/O X4. PT IS STABLE ON ROOM AIR WITH NO SOB OR S/S OF RESPIRATORY DISTRESS NOTED. PT ON EXTERNAL CUSTOMER ENERGY SPECIALIST READING AFIB AT 66BPM. PT HAS NO C/O PAIN OR DISCOMFORT AT THIS TIME. IV ACCESS IN LAC #18, INTACT AND PATENT. ALL NEEDS HAVE BEEN MET. SAFETY PRECAUTIONS MAINTAINED AT ALL TIMES. BED IN LOWEST LOCKED POSITION, HOB ELEVATED, SIDE RAILS UP X2. CALL LIGHT AND TABLE WITHIN REACH. WILL ENDORSE TO ONCOMING NURSE FOR GIANCARLO.
--- NOTE | 2020-12-24 19:46 | NUR ---
RN NOTES PT IS AWAKE IN BED. A/O X4. PT IS STABLE ON ROOM AIR WITH NO SOB OR S/S OF RESPIRATORY DISTRESS NOTED. PT ON EXTERNAL STEEL ESTIMATOR READING AFIB AT 66BPM. PT HAS NO C/O PAIN OR DISCOMFORT AT THIS TIME. IV ACCESS IN LAC #18, INTACT AND PATENT. ALL NEEDS HAVE BEEN MET AT THIS TIME. SAFETY PRECAUTIONS MAINTAINED AT ALL TIMES. BED IN LOWEST LOCKED POSITION, HOB ELEVATED, SIDE RAILS UP X2. CALL LIGHT AND TABLE WITHIN REACH. WILL CONTINUE TO MONITOR.
[2020-12-24 20:00] VITALS: BP 114/68
[2020-12-24] MEDS: METOPROLOL TARTRATE 50 MG TABLET PO SCH (21:06)
[2020-12-25] VITALS (20 sets, daily range): BP systolic 85–141; BP diastolic 53–113
--- NOTE | 2020-12-25 06:39 | NUR ---
RN NOTES PULP MILL SUPERVISOR UNABLE TO DRAW LABS PT DOES NOT WANT BLOOD DRAWN FROM HAND. SPOKE TO PT PT AGREED TO HAVE BLOOD DRAWN BY ANOTHER PULP MILL SUPERVISOR. PHLEBOLOGIST AWARE AND WILL HAVE COLLEAGUE TRY.
--- NOTE | 2020-12-25 06:42 | NUR ---
RN NOTES PT IS AWAKE IN BED. A/O X4. PT IS STABLE ON ROOM AIR WITH NO SOB OR S/S OF RESPIRATORY DISTRESS NOTED. PT ON EXTERNAL HOME COMPANION READING AFIB AT 66BPM. PT HAS NO C/O PAIN OR DISCOMFORT AT THIS TIME. IV ACCESS IN LAC #18, INTACT AND PATENT. ALL NEEDS HAVE BEEN MET AT THIS TIME. SAFETY PRECAUTIONS MAINTAINED AT ALL TIMES. BED IN LOWEST LOCKED POSITION, HOB ELEVATED, SIDE RAILS UP X2. CALL LIGHT AND TABLE WITHIN REACH. PT KEPT NPO SINCE MIDNIGHT FOR PACEMAKER PLACEMENT TODAY AT @11 AM CONSENTS SIGNED .WILL ENDORSE CARE TO DAY SHIFT NURSE.
--- NOTE | 2020-12-25 07:22 | NUR ---
NUCLEAR MONITORING TECHNICIAN OPENING NOTE PT RECEIVED AWAKE AND SITTING AT SIDE OF BED. A/O X4. ABLE TO MAKE NEEDS KNOWN, DENIES PAIN OR ANY DISCOMFORTS AT THIS TIME. PT FOR PACEMAKER PLACEMENT TODAY, NPO MAINTAINED. ON ROOM AIR, BREATHING EVEN AND UNLABORED, NO SOB NOTED. PT ON EXTERNAL CUSTODIAL ENGINEER WITH CURRENT READING A-FIB CONTROLLED, HR ON THE 70'S, NO C/O CARDIAC DISTRESS VOICED. IV SL ON LAC #18 INTACT AND PATENT. SAFETY PRECAUTIONS MAINTAINED: BED IN LOWEST LOCKED POSITION, SIDE RAILS UP X2. AND CALL LIGHT AND BEDSIDE TABLE WITHIN REACH. WILL CONTINUE TO MONITOR PT.
[2020-12-25] MEDS: LOSARTAN POTASSIUM 25 MG TABLET PO SCH (08:09)
[2020-12-25] MEDS: METOPROLOL TARTRATE 50 MG TABLET PO SCH ×2 (08:10→21:27)
[2020-12-25] MEDS: FUROSEMIDE 20 MG TABLET PO SCH (08:10)
[2020-12-25] MEDS: DIGOXIN 0.125 MG TABLET PO SCH (08:10)
[2020-12-25 08:30] LABS: EOSINOPHILS % (AUTO) 2.6 % (0.0-6.0); HEMATOCRIT 46 % (33-45); HEMOGLOBIN 14.6 g/dL (11.5-14.8); LYMPHOCYTES # (AUTO) 1.3 K/uL (0.8-4.8); LYMPHOCYTES % (AUTO) 26.5 % (20.0-44.0); MEAN CORPUSCULAR HGB CONC 32 g/dl (31.0-36.0); MEAN CORPUSCULAR VOLUME 84 fL (82-100); MONOCYTES # (AUTO) 0.3 K/uL (0.1-1.30); MONOCYTES % (AUTO) 6.5 % (2.0-12.0); NEUTROPHILS % (AUTO) 63.4 % (43.0-81.0); PLATELET COUNT (AUTO) 240 K/uL (150-450); RED BLOOD CELL COUNT(AUTO) 5.49 MIL/uL (4.0-5.2); WHITE BLOOD COUNT (AUTO) 4.8 K/uL (4.3-11.0)
[2020-12-25] MEDS: PANTOPRAZOLE 40 MG VIAL IV SCH (08:30)
[2020-12-25 08:48] LABS: CALCIUM, SERUM 8.9 mg/dL (8.5-10.1); CREATININE 0.7 mg/dL (0.6-1.3); MAGNESIUM 2.2 mg/dL (1.8-2.4); PHOSPHORUS 3.4 mg/dL (2.5-4.9); POTASSIUM 4.4 mmol/L (3.5-5.1)
[2020-12-25] MEDS: FLUTICASONE PROPIONATE 16 GM BOTTLE NS SCH (09:14)
[2020-12-25] MEDS ORDERED: LIDOCAINE HCL/MPF 1% 30 ML VIAL IJ ONE (10:01)
[2020-12-25] MEDS ORDERED: IOHEXOL 0 ML IV ONE (10:01)
[2020-12-25] MEDS ORDERED: BUPIVACAINE 0.5 % PF 150 MG/30 ML VIAL ONE (10:02)
--- NOTE | 2020-12-25 10:42 | NUR ---
RN NOTES PT TRANSPORTED BY SANTINO DAWN AND TRANSPORTER ADAN TO [facility] FOR PACEMAKER PLACEMENT.
[2020-12-25] MEDS ORDERED: FENTANYL PF 100MCG/2ML AMPUL ONE (10:58)
[2020-12-25] MEDS ORDERED: CLINDAMYCIN IV RTU IN D5W 600 MG/50 ML PIGGYBACK IV ONE (11:07)
--- NOTE | 2020-12-25 12:35 | NUR ---
DAMAGE PREVENTION COORDINATOR NOTES RECEIVED PT FROM OR. S/P PACEMAKER PLACEMENT. AWAKE. A/O X4. STABLE ON ROOM AIR, NO SOB OR ANY S/S OF ACUTE RESPIRATORY DISTRESS. NO PAIN REPORTED AT THIS TIME. DRESSING CLEAN, DRY AND INTACT ON RIGHT UPPER CHEST. SAFETY MEASURES IN PLACE. BED LOCKED AND IN LOWEST POSITION WITH SIDE RAILS UP X2. CALL LIGHT WITHIN REACH. WILL CONTINUE TO MONITOR.
--- NOTE | 2020-12-25 13:02 | NUR ---
RN NOTES PT TRANSFERRED TO ICU RM 263 FROM PACEMAKER PLACEMENT AT THE [facility]. REPORT GIVEN TO BRAEDEN OPERATIONS RESEARCH SCIENTIST. PT'S BELONGINGS BROUGHT TO PT'S ROOM.
[2020-12-25] MEDS: RIVAROXABAN 10 MG TABLET PO SCH (17:12)
--- NOTE | 2020-12-25 18:54 | NUR ---
RN NOTES NO SIGNIFICANT CHANGES THROUGHOUT THE SHIFT. NO SOB. NO PAIN REPORTED AT THIS TIME. KEPT CLEAN AND COMFORTABLE. ALL DUE MEDS GIVEN. NEEDS ATTENDED. ASSISTED TO THE BATHROOM. SAFETY MEASURES IN PLACE. CALL LIGHT WITHIN REACH. WILL ENDORSE TO NIGHT RN FOR GIANCARLO.
--- NOTE | 2020-12-25 19:30 | NUR ---
RN OPENING NOTES: RECEIVED PT A/OX4 IN BED RESTING COMFORTABLY. PATIENT IN NO S/SX OF ACUTE DISTRESS AT THIS TIME. NO SOB NOTED. PATIENT'S BREATHING IS EVEN AND UNLABORED. PATIENT IS ON ROOM AIR; TOLERATING WELL. PATIENT ON TELE MONITORING READING SINUS HR IS @60s AT THE TIME OF RECEIVED. PATIENT ON REGULAR DIET; TOLERATES WELL. PT IS S/P PLACEMENT OF SINGLE LEAD PACEMAKER ON THE L UPPER CW; DRESSING DRY AND INTACT. NOTED IV SITE ON L AC#18; PATENT, INTACT AND FLUSHING WELL; NO S/S OF INFECTION OR INFILTRATION. PT IS AMBULATORY WITH SOME ASSIST WITH BRP. SAFETY MEASURES HAVE BEEN PROVIDED AND IMPLEMENTED. PATIENT BED ALARM IS ON. HEAD OF BED ELEVATED. BED IS LOCKED, IN LOWEST POSITION AND SIDE RAILS UP. CALL LIGHT WITHIN REACH OF THE PATIENT. APPLICABLE ISOLATION PRECAUTIONS IN PLACE. WILL CONTINUE TO MONITOR AND REASSESS FOR ANY CHANGES AND WILL CARRY OUT ANY ONGOING AND ACTIVE MD ORDER.
[2020-12-26] VITALS (22 sets, daily range): BP systolic 84–127; BP diastolic 25–91
--- NOTE | 2020-12-26 | NUR ---
RN NOTES PATIENT REMAINED TO BE IN NO SIGNS OF ACUTE RESPIRATORY DISTRESS , VITAL SIGNS WNL AT THIS TIME. NO COMPLAINTS OF PAIN. WILL CONTINUE TO MONITOR AND REASSESS FOR ANY CHANGES THROUGHOUT THE SHIFT.
--- NOTE | 2020-12-26 04:00 | NUR ---
RN NOTES NO NOTED CHANGES IN PATIENT CONDITION AT THIS TIME; DRESSING REMAINED INTACT AND SECURED NO SIGNS OF BLEEDING; PATIENT VITALS STABLE, NO SIGNS OF ACUTE RESPIRATORY DISTRESS. AM PATIENT CARE RENDERED.WILL CONTINUE TO MONITOR AND REASSESS FOR ANY CHANGES THROUGHOUT THE SHIFT.
--- NOTE | 2020-12-26 06:52 | NUR ---
RN CLOSING NOTE: PATIENT REMAINS IN ROOM IN NO SIGNS OF RESPIRATORY DISTRESS, PATIENT STILL ON ROOM AIR;TOLERATING WELL SATURATING @ >95% SP02. DRESSING @ THE L UPPER CHESTWALL REMAINED TO BE DRY, SECURED AND INTACT NO SIGNS OF BLEEDING AND INFECTION. SAFETY MEASURES IMPLEMENTED, BED IN LOWEST POSITION, LOCKED, SIDE RAILS UP, CALL LIGHT WITHIN REACH. ALL NEEDS AND ORDERS ADDRESSED DURING THE SHIFT. IV ACCESS MAINTAINED INTACT, SECURED AND FLUSHING WELL. ALL DUE MEDS GIVEN ORDERED & SCHEDULED ; PATIENT TOLERATED WELL. PATIENT KEPT CLEAN AND COMFORTABLE WITHIN THE SHIFT. PATIENT ENDORSED TO INCOMING SHIFT RN WITH STABLE VITAL SIGN AND FOR CONTINUITY OF CARE.
--- NOTE | 2020-12-26 07:15 | NUR ---
RN NOTES RECEIVED PT RESTING COMFORTABLY IN BED. A/O X4. STABLE ON ROOM AIR. NO SOB OR ANY S/SX OF ACUTE DISTRESS NOTED. L UPPER CHEST WALL DRESSING DRY AND INTACT. L AC#18 INTACT, PATENT AND FLUSHED. AMBULATORY WITH BRP, STANDBY ASSIST. SAFETY MEASURES IMPLEMENTED. CALL LIGHT WITHIN REACH. BED LOCKED AND IN LOWEST POSITION AND SIDE RAILS UP X2. WILL CONTINUE TO MONITOR.
[2020-12-26] MEDS: PANTOPRAZOLE 40 MG VIAL IV SCH (08:47)
[2020-12-26] MEDS: DIGOXIN 0.125 MG TABLET PO SCH (08:48)
[2020-12-26] MEDS: FUROSEMIDE 20 MG TABLET PO SCH (08:48)
[2020-12-26] MEDS: FLUTICASONE PROPIONATE 16 GM BOTTLE NS SCH (09:06)
[2020-12-26] MEDS: METOPROLOL TARTRATE 50 MG TABLET PO SCH (09:28)
[2020-12-26] MEDS: LOSARTAN POTASSIUM 25 MG TABLET PO SCH (10:09)
--- NOTE | 2020-12-26 14:45 | NUR ---
RN NOTES PT DISCHARGED HOME. VS STABLE. NO SOB OR ANY S/S OF RESPIRATORY DISTRESS. NO COMPLAINS OF PAIN. VACCINATIONS ALL UP TO DATE. DISCHARGED INSTRUCTION GIVEN TO PT, VERBALIZED UNDERSTANDING. INFORMATION ABOUT PACEMAKER PROVIDED. WENT HOME ACCOMPANIED BY FAMILY MEMBER.
== END 2020-12-26 14:44 | disposition home or self-care (01) | DRG 242 ==
LOC: ER 12:53 → TELE 16:49 → ICU 12-25 12:38
PROVIDERS: ADMIT Nurse Practitioner Acute Care
PROC: 0JH604Z Insertion of Pacemaker, Single Chamber into Chest Subcutaneous Tissue and Fascia, Open Approach (ICD-10-PCS; principal; 2020-12-26)
PROC: 02HK3JZ Insertion of Pacemaker Lead into Right Ventricle, Percutaneous Approach (ICD-10-PCS; 2020-12-26)
DX: I49.5 Sick sinus syndrome (principal); I50.33 Acute on chronic diastolic (congestive) heart failure; I48.19 Other persistent atrial fibrillation; I11.0 Hypertensive heart disease with heart failure; E66.9 Obesity, unspecified; Z20.822 Contact with and (suspected) exposure to COVID-19; Z68.28 Body mass index [BMI] 28.0-28.9, adult; E78.5 Hyperlipidemia, unspecified; I25.10 Atherosclerotic heart disease of native coronary artery without angina pectoris; Z79.01 Long term (current) use of anticoagulants; Z88.0 Allergy status to penicillin; Z79.899 Other long term (current) drug therapy; Z90.710 Acquired absence of both cervix and uterus; I34.0 Nonrheumatic mitral (valve) insufficiency; J45.909 Unspecified asthma, uncomplicated
CPT/HCPCS: 36415; 71045-TC; 80048-TC; 80061-TC; 80162-TC; 83735-TC; 84100-TC; 84484-TC; 85025-TC; 85610-TC; 85730-TC; 87081-TC; C1786; C9113; C9803; G0378; J2405; J2704; J3010; J3490; J7030; Q9967

== ENCOUNTER 2020-12-28 18:50 | Inpatient (IN) | payer BC ==
[~2020-12-28] VITALS: Ht 160 cm; Wt 77.6 kg
[2020-12-28 18:30] VITALS: BP 141/79
[~2020-12-28 18:50] MED LIST changes: +FLUT16SP; +FURO-145 PO; -FURO20TA4 PO; +LOSA25TA27 PO; -METO25TA4 PO; +METO50TA16 PO
--- NOTE | 2020-12-28 19:00 | NUR ---
DITCHER OPERATOR ADMITTING NOTES DIRECT ADMITTED PT FROM [facility] VIA GURNEY AT 1825 ACCOMPANIED BY 3 EMT'S FROM [facility]. PT IS A/O X4. ABLE TO MAKE NEEDS KNOWN, NO C/O PAIN VERBALIZED. PT WITH IV ACCESS NOTED ON LFA G#20 INTACT, PATENT AND FLUSHES WELL. PT PLACED ON EXTERNAL AUTO CAMP ATTENDANT WITH READINGS OF A-FIB CONTROLLED, HR 90-110, NO C/O CARDIAC DISTRESS VOICED. SAFETY MEASURES INITIATED: BED PLACED IN LOWEST LOCKED POSITION WITH SR UP X2. CALL LIGHT W/IN EASY REACH OF PT. ENDORSED TO CAREER AND GUIDANCE COUNSELOR RN VIC TO CONTINUE WITH ADMISSION PROCESS. .
[2020-12-28 20:00] VITALS: BP 117/68
[2020-12-28] MEDS ORDERED: ACETAMINOPHEN 325 MG TABLET PO PRN (21:30)
--- NOTE | 2020-12-28 21:43 | NUR ---
GAS TURBINE POWERPLANT MECHANIC NOTES C/O MILD PAIN ON LEFT UPPER CHEST AREA,TYLENOL 650MG PO GIVEN PER PATIENT REQUEST.
[2020-12-29] VITALS: BP_SYST 117; BP_SYST 120; BP_DIAS 68; BP_DIAS 78
--- NOTE | 2020-12-29 00:30 | NUR ---
CORRECTIVE THERAPY AIDE TEACHER NOTES HOSPITALIST DEMETRIO AT BEDSIDE,TALKING TO PATIENT,WITH NEW ORDERS NOTED AND CARRIED OUT.
[2020-12-29] MEDS ORDERED: ZOLPIDEM TARTRATE 5 MG TABLET PO PRN (01:00)
[2020-12-29] MEDS ORDERED: ONDANSETRON HCL/PF 4 MG/2 ML VIAL IVP PRN (01:00)
--- NOTE | 2020-12-29 01:00 | NUR ---
LAND MEASURER NOTES STARTED ON IVF NS AT 75ML/HR RATE ORDERED.
[2020-12-29] MEDS ORDERED: CEFTRIAXONE 1 G VIAL ONE (01:03)
[2020-12-29] MEDS: CEFTRIAXONE 1 G in IV D5W 50 ML IV SCH (01:07)
--- NOTE | 2020-12-29 01:07 | NUR ---
FAGOTING MACHINE OPERATOR NOTES STARTED ON ROCEPHIN 1GM IVPB ORDERED,SUSPECTING UTI
[2020-12-29] MEDS: IV NS 0.9% 1,000 ML IV PRN (01:08)
[2020-12-29] MEDS: HYDROCODONE/APAP 5/325MG TABLET PO PRN ×2 (01:08→08:03)
--- NOTE | 2020-12-29 01:08 | NUR ---
CLASSICS TEACHER NOTE PAIN MANAGEMENT C/O LEFT UPPER CHEST PAIN,S/P PACEMAKER PLACEMENT,NORCO 5/325MG,1 TAB PO GIVEN ORDERED.
--- NOTE | 2020-12-29 02:04 | NUR ---
CASHIER COURTESY BOOTH NOTES MRSA SWAB FOR MRSA SURVEILANCE DONE
[2020-12-29 05:00] VITALS: BP 118/79
[2020-12-29 05:48] LABS: BILIRUBIN,URINE NEGATIVE (NEGATIVE); COLOR,URINE YELLOW (YELLOW); LEUKOCYTE ESTERASE ,URINE NEGATIVE (NEGATIVE); NITRITE, URINE NEGATIVE (NEGATIVE); PH,URINE 6.5 (5.0-8.0); PROTEIN,URINE NEGATIVE (NEGATIVE); UGLUCOSE NEGATIVE (NEGATIVE); UROBILINOGEN,URINE 0.2 EU/dL (0.2)
--- NOTE | 2020-12-29 06:26 | NUR ---
REGIONAL ECONOMIC LIAISON NOTES FAIRLY RESTED AT NIGHT,IVF INFUSING.,STILL COMPLAINTS OF LEFT SHOULDER PAIN.WILL MEDICATE.CALL LIGHT IN REACH,NEEDS ATTENDED.
--- NOTE | 2020-12-29 07:30 | NUR ---
RN NOTES RECEIVED PATIENT IN BED, AWAKE, A/O X 4. NO SIGNS OF ACUTE DISTRESS NOTED. STILL WITH C/O PAIN ON LEFT SHOULDER. REPOSITIONED FOR COMFORT. WILL MEDICATE FOR PAIN NEEDED. SAFETY MEASURES IN PLACE. BED ON ITS ;OWEST POSITION, LOCKED, BSR UP, TABLE AND CALL LIGHT PLACED WITHIN REACH. WILL CONTINUE TO MONITOR.
[2020-12-29 07:44] LABS: BASOPHILS % (AUTO) 0.6 % (0.0-2.0); EOSINOPHILS % (AUTO) 2.6 % (0.0-6.0); HEMATOCRIT 38 % (33-45); HEMOGLOBIN 12.1 g/dL (11.5-14.8); LYMPHOCYTES # (AUTO) 1.5 K/uL (0.8-4.8); LYMPHOCYTES % (AUTO) 21.6 % (20.0-44.0); MEAN CORPUSCULAR HGB CONC 32 g/dl (31.0-36.0); MEAN CORPUSCULAR VOLUME 83 fL (82-100); MONOCYTES # (AUTO) 0.6 K/uL (0.1-1.30); MONOCYTES % (AUTO) 9.1 % (2.0-12.0); NEUTROPHILS # (AUTO) 4.6 K/uL (1.8-8.9); NEUTROPHILS % (AUTO) 66.1 % (43.0-81.0); PLATELET COUNT (AUTO) 193 K/uL (150-450); RED BLOOD CELL COUNT(AUTO) 4.56 MIL/uL (4.0-5.2)
[2020-12-29 08:00] VITALS: BP 114/81
[2020-12-29 08:06] LABS: CREATININE 0.5 mg/dL (0.6-1.3); POTASSIUM 3.6 mmol/L (3.5-5.1)
--- NOTE | 2020-12-29 08:49 | NUR ---
RN NOTES PATIENT SEEN BY DR. SHHA TODAY W/ ORDERS NOTED. MADE AWARE OF PATIENT'S COMPLAINT OF PAIN; PER MD, PAIN MIGHT BE CAUSED BY PATIENT'S IRREGULAR HEART RHYTHM AND WILL BE MONITORED W/ CARDIAC MEDS FOR EFFECT.
[2020-12-29] MEDS ORDERED: FUROSEMIDE 20 MG TABLET PO SCH (09:00)
[2020-12-29] MEDS: METOPROLOL TARTRATE 50 MG TABLET PO SCH ×2 (09:19→16:07)
[2020-12-29] MEDS: LOSARTAN POTASSIUM 25 MG TABLET PO SCH (09:20)
[2020-12-29] MEDS: FLUTICASONE PROPIONATE 16 GM BOTTLE NS SCH (12:00)
[2020-12-29] MEDS: DIGOXIN 0.125 MG TABLET PO SCH (12:37)
--- NOTE | 2020-12-29 13:18 | NUR ---
RN NOTES PATIENT STILL COMPLAINT OF PAIN ON LUE BUT MORE TOLERABLE PER PATIENT; ABLE TO MOVE LUE SLOWLY W/IN PHYSICAL LIMITATIONS. ASSISTED W/ ADL'S TOLERATED.
[2020-12-29] MEDS: ACETAMINOPHEN 325 MG TABLET PO PRN (14:07)
[2020-12-29] MEDS: RIVAROXABAN 10 MG TABLET PO SCH (16:09)
--- NOTE | 2020-12-29 19:00 | NUR ---
RN NOTES PATIENT IN BED, AWAKE A/OX4 ON ROOM AIR, SPO2 98%. BREATHING EVEN AND UNLABORED, NO SOB NOTED. ALL DUE MEDS GIVEN, TOLERATED WELL. STILL WITH C/O PAIN ON LEFT SHOULDER BUT MORE TOLERABLE, APPLIED HOT COMPRESS FOR COMFORT. SL ON LEFT FOREARM #20G PATENT AND INTACT. SAFETY MEASURES PROVIDED. BED ON ITS LOWEST POSITION, BED LOCKED, SIDE RAILS UP, CALL LIGHT AND TABLE PLACED WITHIN EASY REACH. WILL CONTINUE TO MONITOR.
--- NOTE | 2020-12-29 19:30 | NUR ---
INDUSTRIAL RETROFIT DESIGNER NOTES RECEIVED PATIENT IN BED. A/OX4. NO S/S OF APPARENT DISTRESS. PAIN IS A TOLERABLE PER PATIENT C/O 4/10 PAIN. NO NEEDS AT THIS TIME. SAFETY IN PLACE. WILL CONTINUE TO MONITOR.
[2020-12-29 20:24] VITALS: BP_SYST 118; BP_SYST 145; BP_DIAS 77; BP_DIAS 88
[2020-12-30] VITALS (9 sets, daily range): BP systolic 109–133; BP diastolic 69–95
[2020-12-30] MEDS: HYDROCODONE/APAP 5/325MG TABLET PO PRN ×4 (00:51→23:04)
--- NOTE | 2020-12-30 00:51 | NUR ---
RN NOTE PATIENT GIVEN NORCO FOR PAIN 7/10 ON SHOULDER. WILL REASSESS PAIN AT A LATER TIME.
[2020-12-30] MEDS: CEFTRIAXONE 1 G in IV D5W 50 ML IV SCH (01:16)
[2020-12-30 06:29] LABS: BASOPHILS % (AUTO) 0.5 % (0.0-2.0); EOSINOPHILS % (AUTO) 2.3 % (0.0-6.0); HEMATOCRIT 36 % (33-45); HEMOGLOBIN 11.7 g/dL (11.5-14.8); LYMPHOCYTES # (AUTO) 1.5 K/uL (0.8-4.8); LYMPHOCYTES % (AUTO) 21.5 % (20.0-44.0); MEAN CORPUSCULAR HGB CONC 32 g/dl (31.0-36.0); MEAN CORPUSCULAR VOLUME 84 fL (82-100); MONOCYTES # (AUTO) 0.6 K/uL (0.1-1.30); MONOCYTES % (AUTO) 8.7 % (2.0-12.0); NEUTROPHILS # (AUTO) 4.7 K/uL (1.8-8.9); PLATELET COUNT (AUTO) 207 K/uL (150-450); RED BLOOD CELL COUNT(AUTO) 4.33 MIL/uL (4.0-5.2)
--- NOTE | 2020-12-30 06:43 | NUR ---
GUEST ROOM ATTENDANT NOTE PATIENT IN BED, A/OX4. AMBULATORY AND INDEPENDENT WITH SELF-CARE. NO S/S OF APPARENT DISTRESS. PAIN TOLERABLE. TELE READING V PACING 70S, PATIENT HAS PACEMAKER. IV NS RUNNING @75ML/HR. ALL NEEDS ATTENDED. ALL SCHEDULES MEDICATION ADMINISTERED. NO SIGNIFICANT CHANGE SINCE LAST SHIFT. WILL ENDORSE CARE TO MORNING SHIFT RN.
[2020-12-30 06:47] LABS: CALCIUM, SERUM 8.1 mg/dL (8.5-10.1); CREATININE 0.5 mg/dL (0.6-1.3); MAGNESIUM 1.9 mg/dL (1.8-2.4); POTASSIUM 3.9 mmol/L (3.5-5.1)
--- NOTE | 2020-12-30 07:45 | NUR ---
RN NOTES RECEIVED PATIENT IN BED, AWAKE, A/O X 4. NO SIGNS OF ACUTE DISTRESS NOTED. STILL WITH SLIGHT C/O PAIN ON LEFT SHOULDER, TOLERABLE. REPOSITIONED FOR COMFORT. CONTINUE ON TELE MONITORING. SAFETY MEASURES IN PLACE. BED ON ITS LOWEST POSITION, BED LOCKED, SIDE RAILS UP, TABLE AND CALL LIGHT PLACED WITHIN REACH. WILL CONTINUE TO MONITOR.
[2020-12-30] MEDS: FLUTICASONE PROPIONATE 16 GM BOTTLE NS SCH (08:50)
[2020-12-30] MEDS: LOSARTAN POTASSIUM 25 MG TABLET PO SCH (08:50)
[2020-12-30] MEDS: METOPROLOL TARTRATE 50 MG TABLET PO SCH ×2 (08:51→16:25)
[2020-12-30] MEDS: DIGOXIN 0.125 MG TABLET PO SCH (12:10)
[2020-12-30] MEDS: RIVAROXABAN 10 MG TABLET PO SCH (16:26)
--- NOTE | 2020-12-30 18:22 | NUR ---
RN NOTES PATIENT IN BED, AWAKE A/OX4 ON ROOM AIR, SPO2 98%. BREATHING EVEN AND UNLABORED, NO SOB NOTED. ALL DUE MEDS GIVEN, TOLERATED WELL. STILL WITH C/O PAIN ON LEFT SHOULDER BUT MORE TOLERABLE, APPLIED HOT COMPRESS FOR COMFORT, MEDICATED WITH NORCO 5/325MG, LAST GIVEN @1630, SL ON LEFT FOREARM #20G PATENT AND INTACT. CONTINUE TELE, PACING 70'S. SEEN BY DR. SHEPHERD EARLIER AND SAID THAT PATIENT MAY BE DISCHARGE TOMORROW PER CARDIO POINT OF VIEW. SAFETY MEASURES PROVIDED. BED ON ITS LOWEST AND LOCKED POSITION, SIDE RAILS UP, CALL LIGHT AND TABLE PLACED WITHIN EASY REACH. WILL CONTINUE TO MONITOR. WILL ENDORSE TO NEXT SHIFT.
--- NOTE | 2020-12-30 19:43 | NUR ---
TRANSIT MECHANIC OPENING NOTES RECEIVED PT IN BED, AWAKE. AOx4. ABLE TO MAKE NEEDS KNOWN. ON RA AND TOLERATING WELL. NO SOB NOTED. NO S/SX OF RESPIRATORY DISTRESS NOTED. TELE MONITOR DETECTS AFIB WITH V PACING AND RATE OF 69. IV ACCESS IN L FA #20G RUNNING NS @ 75 ML/HR. SAFETY PRECAUTIONS IN PLACE: BED IN LOWEST, LOCKED POSITION, SIDERAILS UPx2, BRAKES ON. TABLE AND CALL LIGHT WITHIN REACH. WILL CONTINUE TO MONITOR.
[2020-12-30] MEDS: IV NS 0.9% 1,000 ML IV PRN (21:05)
--- NOTE | 2020-12-30 23:04 | NUR ---
ADMINISTERED NORCO FOR PAIN PER MD ORDER. WILL CONTINUE TO MONITOR.
[2020-12-31] VITALS: BP 95/62
[2020-12-31] MEDS: CEFTRIAXONE 1 G in IV D5W 50 ML IV SCH (00:35)
[2020-12-31 04:00] VITALS: BP 117/68
[2020-12-31] MEDS: HYDROCODONE/APAP 5/325MG TABLET PO PRN ×2 (04:46→15:57)
--- NOTE | 2020-12-31 04:46 | NUR ---
ADMINISTERED NORCO PER MD ORDER FOR PAIN. VS WNL. WILL CONTINUE TO MONITOR.
--- NOTE | 2020-12-31 06:37 | NUR ---
MANAGER OF PROCUREMENT CLOSING NOTES PT IN BED, AWAKE. AOx4. ABLE TO MAKE NEEDS KNOWN. ON RA AND TOLERATING WELL. NO SOB NOTED. NO S/SX OF RESPIRATORY DISTRESS NOTED. TELE MONITOR DETECTS AFIB WITH V PACING AND RATE OF 65-75. IV ACCESS IN L FA #20G RUNNING NS @ 75 ML/HR. ALL NEEDS MET. TREATED PAIN THROUGHOUT SHIFT. PT KEPT CLEAN AND DRY. SAFETY PRECAUTIONS IN PLACE: BED IN LOWEST, LOCKED POSITION, SIDERAILS UPx2, BRAKES ON. TABLE AND CALL LIGHT WITHIN REACH. WILL ENDORSE TO ONCOMING SHIFT.
[2020-12-31 06:51] LABS: BASOPHILS % (AUTO) 0.9 % (0.0-2.0); EOSINOPHILS % (AUTO) 5.8 % (0.0-6.0); HEMATOCRIT 37 % (33-45); HEMOGLOBIN 12.2 g/dL (11.5-14.8); LYMPHOCYTES # (AUTO) 1.5 K/uL (0.8-4.8); LYMPHOCYTES % (AUTO) 27.9 % (20.0-44.0); MEAN CORPUSCULAR HGB CONC 33 g/dl (31.0-36.0); MEAN CORPUSCULAR VOLUME 82 fL (82-100); MONOCYTES # (AUTO) 0.4 K/uL (0.1-1.30); NEUTROPHILS % (AUTO) 57.4 % (43.0-81.0); PLATELET COUNT (AUTO) 225 K/uL (150-450); RED BLOOD CELL COUNT(AUTO) 4.51 MIL/uL (4.0-5.2); WHITE BLOOD COUNT (AUTO) 5.2 K/uL (4.3-11.0)
[2020-12-31 07:29] LABS: CALCIUM, SERUM 8.5 mg/dL (8.5-10.1); CREATININE 0.5 mg/dL (0.6-1.3); POTASSIUM 3.9 mmol/L (3.5-5.1)
--- NOTE | 2020-12-31 07:40 | NUR ---
RN NOTES RECEIVED PATIENT IN BED, NO SIGNS OF ACUTE DISTRESS NOTED. AWAKE, A/OX4. NO C/O PAIN OR DISCOMFORT AT THIS TIME. CALL LIGHT PLACED WITHIN EASY REACH. WILL CONTINUE TO MONITOR.
[2020-12-31 08:00] VITALS: BP 133/85
[2020-12-31] MEDS: FLUTICASONE PROPIONATE 16 GM BOTTLE NS SCH (08:24)
[2020-12-31] MEDS: LOSARTAN POTASSIUM 25 MG TABLET PO SCH (08:24)
[2020-12-31] MEDS: METOPROLOL TARTRATE 50 MG TABLET PO SCH (08:24)
[2020-12-31 12:00] VITALS: BP 120/74
[2020-12-31] MEDS: DIGOXIN 0.125 MG TABLET PO SCH (13:07)
[2020-12-31] MEDS: ACETAMINOPHEN 325 MG TABLET PO PRN (13:49)
--- NOTE | 2020-12-31 14:20 | NUR ---
RN NOTES PATIENT WILL BE PICKED UP BY FAMILY LATER WHEN OKAY FOR DISCHARGE.
--- NOTE | 2020-12-31 16:00 | NUR ---
RN NOTES PATIENT SEEN BY DR. ROWE TODAY W/ ORDER FOR DISCHARGE AFTER CARDIAC CLEARANCE BY DR. FERNANDES. DISCHARGE INSTRUCTION AND EDUCATION PROVIDED TO PATIENT REGARDING ANTIHYPERTENSIVE MEDICATION INTAKE AND HTN MANAGEMENT; VERBALIZED UNDERSTANDING. PERSONAL MEDS RETRIEVED FROM PHARMACY. DISCHARGE FORM AND BELONGINGS LIST FORM SIGNED BY PATIENT AND ALL BELONGINGS ACCOUNTED FOR. NAME ARMBAND AND IV LINE REMOVED, NO BLEEDING NOTED. NO SKIN ISSUES NOTED. PATIENT WAS ACCOMPANIED BY ME TO THE LOBBY VIA WHEELCHAIR AND PICKED UP BY FAMILY FRIEND. CHARGE NURSE AND MD AWARE OF DISCHARGE.
--- NOTE | 2020-12-31 16:13 | NUR ---
RN NOTES PATIENT DISCHARGED HOME. DISCHARGE INSTRUCTIONS AND HEALTH TEACHINGS PROVIDED WITH VERBALIZATION OF UNDERSTANDING. ALL HOME MEDS AND BELONGINGS ACCOUNTED FOR, DISCHARGE FORMS SIGNED. ACCOMPANIED PATIENT TO THE LOBBY VIA W/C, PICKED-UP BY FAMILY MEMBER VIA PRIVATE CAR. PATIENT IN GOOD STABLE CONDITION. LEFT IN GOOD SPIRITS.
== END 2020-12-31 16:00 | disposition home or self-care (01) | DRG 309 ==
LOC: MED 18:50 → TELE 18:58
PROVIDERS: ADMIT Nurse Practitioner Acute Care; ATTEND Internal Medicine
DX: I49.9 Cardiac arrhythmia, unspecified (principal); N39.0 Urinary tract infection, site not specified; I42.9 Cardiomyopathy, unspecified; E87.2 Acidosis; I48.92 Unspecified atrial flutter; I48.91 Unspecified atrial fibrillation; I11.0 Hypertensive heart disease with heart failure; Z95.0 Presence of cardiac pacemaker; Z86.79 Personal history of other diseases of the circulatory system; M25.512 Pain in left shoulder; I34.0 Nonrheumatic mitral (valve) insufficiency; J45.909 Unspecified asthma, uncomplicated; W19.XXXA Unspecified fall, initial encounter; Y92.9 Unspecified place or not applicable; Z91.81 History of falling; Z79.01 Long term (current) use of anticoagulants; I95.1 Orthostatic hypotension; I50.9 Heart failure, unspecified
CPT/HCPCS: 36415; 73030-TC; 80048-TC; 80061-TC; 80162-TC; 83605-TC; 83735-TC; 84100-TC; 84484-TC; 85025-TC; 87081-TC; 87086-TC; 93307-TC; G0378; J0696; J2405; J7030; J7060

== ENCOUNTER → 2021-11-21 | Outpatient (CLI) | payer MEDICARE | END | disposition home or self-care (01) | LOC: RAD 10:49 | PROVIDERS: ATTEND Family Medicine | DX: M19.072 Primary osteoarthritis, left ankle and foot (principal); M77.32 Calcaneal spur, left foot; M25.772 Osteophyte, left ankle; M25.872 Other specified joint disorders, left ankle and foot | CPT/HCPCS: 73610-TC ==